=== PATIENT | female | born 1970 | race Caucasian/White ===

== ENCOUNTER 2016-08-19 17:39 | Emergency (ER) | payer OTHER ==
[~2016-08-19] VITALS: Ht 172.7 cm; Wt 73.3 kg
[~2016-08-19 17:39] MED LIST: AZIT250T3 PO; OMEP20TA PO; PLAQ200T PO; PROP40TA3 PO; VENL75CA44 PO
[2016-08-19 17:45] VITALS: BP 136/92; PULSE 76; RESP 16; TEMP 98.9; O2SAT 100
[2016-08-19 17:56] LABS: BLOOD, URINE TRACE (NEG); GLUCOSE,URINE NEG (NEG); KETONE, URINE 15 mg/dL (NEG); NITRITE,URINE NEG (NEG)
[2016-08-19 18:03] LABS: URINE COLOR YELLOW (YELLW/STRAW)
[2016-08-19 18:04] LABS: COMMENT (UR) CULT NOT INDICATED; CULTURE IF INDICATED CULT NOT INDICATED; RBC, URINE 0-3 /hpf (0-3); SQUAMOUS EPITHELIAL CELL URINE 0-5 /hpf (0-5); WBC, URINE 0-2 /hpf (0-5)
[2016-08-19] MEDS ORDERED: KETOROLAC TROMETHAMINE 30 MG/ML (IVP) VIAL IVP ONE (18:45)
[2016-08-19] MEDS ORDERED: SODIUM CHLORIDE 0.9% FLUSH 5 ML FLUSH IVF PRN (18:45)
[2016-08-19] MEDS ORDERED: ONDANSETRON HCL 4 MG/2 ML VIAL IVP ONE (18:45)
[2016-08-19 19:05] VITALS: BP 109/83; PULSE 58; RESP 20; O2SAT 100; O2SAT 98
[2016-08-19 19:16] LABS: AUTOMATED NEUTROPHIL # 3.7 TH/MM3 (1.8-7.7); BASOPHIL # 0.1 TH/MM3 (0-0.2); BASOPHIL % 1.5 % (0.0-2.0); EOSINOPHIL # 0.1 TH/MM3 (0-0.4); EOSINOPHIL % 2.1 % (0.0-4.0); HEMATOCRIT 35.8 % (35.0-46.0); HEMO FLAGS DIFF FINAL; LYMPH % 38.7 % (9.0-44.0); LYMPHOCYTE # 2.7 TH/MM3 (1.0-4.8); MEAN CELL VOLUME 82.8 FL (80.0-100.0); MEAN CORPUSCULAR HEMOGLOBIN 26.3 PG (27.0-34.0); MEAN CORPUSCULAR HGB CONC 31.8 % (32.0-36.0); MONO % 6.4 % (0.0-8.0); NEUT % 51.3 % (16.0-70.0); PLATELET COUNT 330 TH/MM3 (150-450); RED BLOOD COUNT 4.33 MIL/MM3 (4.00-5.30); RED CELL DISTRIBUTION WIDTH 16.9 % (11.6-17.2); WHITE BLOOD COUNT 7.1 TH/MM3 (4.0-11.0)
[2016-08-19 19:33] LABS: CHLORIDE 107 MEQ/L (98-107); POTASSIUM 3.9 MEQ/L (3.5-5.1); SODIUM (NA) 140 MEQ/L (136-145)
[2016-08-19 19:37] LABS: ANION GAP 9 MEQ/L (5-15); BICARBONATE 23.8 MEQ/L (21.0-32.0); BLOOD UREA NITROGEN 11 MG/DL (7-18)
[2016-08-19 19:40] LABS: ALT (GPT) 14 U/L (10-53); AST (GOT) 12 U/L (15-37); GLOMERULAR FILTRATION RATE 83 ML/MIN (>89)
[2016-08-19 19:41] LABS: TOTAL BILIRUBIN ADULT 0.5 MG/DL (0.2-1.0)
--- NOTE | 2016-08-19 19:41 | PD ---
HPI Chief Complaint: Abdominal Pain Time Seen by Provider: 17:57 Travel History International Travel<30 days: No Contact w/Intl Traveler<30days: No Traveled to known affect area: No History of Present Illness HPI Patient is a 45-year-old female presents to emergency department today with right flank pain radiating down to her groin for the past week. Intermittent in nature. Not associated with any dysuria. Patient does state that she's been having some intermittent nausea without vomiting. States she's never had pain like this before. No kidney stone history. No fevers. States she is monogamous with a single female partner and it is impossible that she is . Patient states the pain is sharp in nature. PFSH Past Medical History Hx Anticoagulant Therapy: No Asthma: No Autoimmune Disease: Yes (Lupus) Blood Disorders: No Anxiety: Yes Depression: Yes Heart Rhythm Problems: No Cardiovascular Problems: Yes High Cholesterol: Yes Chemotherapy: No Chest Pain: No Congestive Heart Failure: No COPD: Yes Cerebrovascular Accident: No Diabetes: No Diminished Hearing: No Diverticulitis: Yes Endocrine: No Gastrointestinal Disorders: Yes (GERD) GERD: Yes Glaucoma: No Genitourinary: Yes (Urethral sling) Headaches: Yes Hepatitis: No Hiatal Hernia: Yes Hypertension: Yes (aplasia therapy) Immune Disorder: Yes (Lupus) Medical other: Yes (GERD) Musculoskeletal: Yes (arthritis) Neurologic: No Psychiatric: Yes Reproductive: Yes Respiratory: Yes Immunizations Current: Yes Myocardial Infarction: No Radiation Therapy: No Sleep Apnea: No Thyroid Disease: No Ulcer: No PNEUMOCCOCAL Vaccine (Year): 1 ?: Not : 4 Para: 2 Miscarriage: 2 Dilation and Curettage (D&C): Yes Tubal Ligation: Yes Past Surgical History Abdominal Surgery: No AICD: No Appendectomy: Yes Body Medical Devices: MESH Cardiac Surgery: Yes (ABLATION 2002 FOR SVT) Ear Surgery: No Endocrine Surgery: No Eye Surgery: No Genitourinary Surgery: Yes (URINARY SLING/MESH) Gynecologic Surgery: No Hysterectomy: No Joint Replacement: No Neurologic Surgery: No Oral Surgery: No Pacemaker: No Thoracic Surgery: No Other Surgery: Yes Social History Alcohol Use: Yes (Occ.) Tobacco Use: Yes (1/2PPD) Substance Use: No Allergies-Medications (Allergen,Severity, Reaction): Coded Allergies: Sulfa (Verified Allergy, Intermediate, Hives, 08/19/16) Hibiclens (Verified Allergy, Mild, HIVES, 08/19/16) Iodine (Verified Allergy, Mild, HIVES, 08/19/16) Reported Meds & Prescriptions Reported Meds & Active Scripts Active Reported Venlafaxine ER 24 HR (Venlafaxine HCl) 75 Mg Cap 75 Mg PO DAILY Propranolol (Propranolol HCl) 40 Mg Tab 40 Mg PO TID Plaquenil (Hydroxychloroquine Sulfate) 200 Mg Tab 200 Mg PO BID Take with food Omeprazole 20 Mg Tab 20 Mg PO DAILY Review of Systems Except as stated in HPI: all other systems reviewed are Neg Physical Exam Narrative GENERAL: [Well-developed well-nourished no apparent distress SKIN: Warm and dry. HEAD: Atraumatic. Normocephalic. EYES: Pupils equal and round. No scleral icterus. No injection or drainage. ENT: No nasal bleeding or discharge. Mucous membranes pink and moist. NECK: Trachea midline. No JVD. CARDIOVASCULAR: Regular rate and rhythm. No murmur appreciated. RESPIRATORY: No accessory muscle use. Clear to auscultation. Breath sounds equal bilaterally. GASTROINTESTINAL: Abdomen soft, non-tender, nondistended. Hepatic and splenic margins not palpable. Minimal right-sided CVA tenderness. MUSCULOSKELETAL: No obvious deformities. No clubbing. No cyanosis. No edema. NEUROLOGICAL: Awake and alert. No obvious cranial nerve deficits. Motor grossly within normal limits. Normal speech. PSYCHIATRIC: Appropriate mood and affect; insight and judgment normal. Data Data Last Documented VS Vital Signs Date Time Temp Pulse Resp B/P Pulse Ox O2 Delivery O2 Flow Rate FiO2 08/19/16 20:09 53 20 128/80 98 08/19/16 17:45 98.9 Orders Urinalysis - C+S If Indicated (08/19/16 17:44) Complete Blood Count With Diff (08/19/16 18:39) Comprehensive Metabolic Panel (08/19/16 18:39) Lipase (08/19/16 18:39) Ct Abd/Pel W/O Iv Contrast (08/19/16 18:39) Iv Access Insert/Monitor (08/19/16 18:39) Ecg Monitoring (08/19/16 18:39) Oximetry (08/19/16 18:39) Ondansetron Inj (Zofran Inj) (08/19/16 18:45) Sodium Chloride 0.9% Flush (Ns Flush) (08/19/16 18:45) Electrocardiogram (08/19/16 18:39) Ketorolac Inj (Toradol Inj) (08/19/16 18:45) Ed Urine Pregnancytest Poc (08/19/16 18:39) Labs Laboratory Tests Test 08/19/16 08/19/16 17:48 18:55 Urine Color YELLOW Urine Turbidity CLEAR Urine pH 7.0 Urine Specific [place] 1.021 Urine Protein NEG mg/dL Urine Glucose (UA) NEG mg/dL Urine Ketones 15 mg/dL Urine Occult Blood TRACE Urine Nitrite NEG Urine Bilirubin NEG Urine Leukocyte Esterase NEG Urine RBC 0-3 /hpf Urine WBC 0-2 /hpf Urine Squamous Epithelial 0-5 /hpf Cells Microscopic Urinalysis Comment CULT NOT INDICATED White Blood Count 7.1 TH/MM3 Red Blood Count 4.33 MIL/MM3 Hemoglobin 11.4 GM/DL Hematocrit 35.8 % Mean Corpuscular Volume 82.8 FL Mean Corpuscular Hemoglobin 26.3 PG Mean Corpuscular Hemoglobin 31.8 % Concent Red Cell Distribution Width 16.9 % Platelet Count 330 TH/MM3 Mean Platelet Volume 8.4 FL Neutrophils (%) (Auto) 51.3 % Lymphocytes (%) (Auto) 38.7 % Monocytes (%) (Auto) 6.4 % Eosinophils (%) (Auto) 2.1 % Basophils (%) (Auto) 1.5 % Neutrophils # (Auto) 3.7 TH/MM3 Lymphocytes # (Auto) 2.7 TH/MM3 Monocytes # (Auto) 0.5 TH/MM3 Eosinophils # (Auto) 0.1 TH/MM3 Basophils # (Auto) 0.1 TH/MM3 CBC Comment DIFF FINAL Differential Comment Sodium Level 140 MEQ/L Potassium Level 3.9 MEQ/L Chloride Level 107 MEQ/L Carbon Dioxide Level 23.8 MEQ/L Anion Gap 9 MEQ/L Blood Urea Nitrogen 11 MG/DL Creatinine 0.76 MG/DL Estimat Glomerular Filtration 83 ML/MIN Rate Random Glucose 87 MG/DL Calcium Level 8.8 MG/DL Total Bilirubin 0.5 MG/DL Aspartate Amino Transf 12 U/L (AST/SGOT) Alanine Aminotransferase 14 U/L (ALT/SGPT) Alkaline Phosphatase 73 U/L Total Protein 6.8 GM/DL Albumin 3.3 GM/DL Lipase 90 U/L MDM Medical Decision Making Medical Screen Exam Complete: Yes Emergency Medical Condition: Yes Interpretation(s) EKG shows normal sinus rhythm with a normal axis normal R-wave progression. No concerning ST-T changes. Intervals within normal limits. This is normal EKG Differential Diagnosis Kidney stone, , acute kidney injury, urinary tract infection, cholecystitis and likely, pancreatitis and unlikely, gastritis, gastroenteritis. Narrative Course Patient was roomed in emergency department, she was given Toradol and started to feel better. She was also given Zofran and her nausea resolved. Symptoms could be consistent with kidney stones or not concrete. Discussed with her need for CAT scan to confirm diagnosis as well as to look for other pathology. Last 24 hours Impressions Abdomen/Pelvis CT 08/19/16 [id number] Signed Impressions: Service Date/Time: Friday, August 19, 2016 19:46 - CONCLUSION: No acute CT findings in the abdomen or pelvis. Stepan Carver MD Labs are reassuring electrolytes within normal limits, LFTs normal, lipase negative. CBC shows minimal anemia to 11.4 hemoglobin otherwise within normal limits. UA negative UPT negative. Discussed with the patient and no discrete cause of her abdominal pain could be ascertained. She was offered pelvic exam is perfectly workup and she declined at this time wanted to follow up with her crepe sole scourer instead. She appears well and in no apparent distress and stable for discharge. Discussed need follow-up the primary care physician. Diagnosis Primary Impression: Abdominal pain Qualified Code: R10.11 - Right upper quadrant abdominal pain Disposition: 01 DISCHARGE HOME Condition: Stable Eric Sharp MD Aug 19, 2016 19:41
[2016-08-19 19:42] LABS: ALKALINE PHOSPHATASE 73 U/L (45-117)
[2016-08-19 20:09] VITALS: BP 128/80; PULSE 53; RESP 20; O2SAT 98
--- NOTE | 2016-08-19 20:13 | RADHPO ---
EXAM DATE/TIME: 08/19/2016 19:46 [facility] COMPARISON: No previous studies available for comparison. INDICATIONS : Right lower quadrant pain. ORAL CONTRAST: No oral contrast ingested. RADIATION DOSE: 13.28 CTDIvol (mGy) MEDICAL HISTORY : Gastroesophageal reflux disease. Diverticulitis. Hernia, hiatal.Hypertension. SURGICAL HISTORY : Appendectomy. Tubal ligation.Urinary sling. ENCOUNTER: Initial ACUITY: 2 days PAIN SCALE: 7/10 LOCATION: Right lower quadrant TECHNIQUE: Volumetric scanning of the abdomen and pelvis was performed. Using automated exposure control and ad justment of the mA and/or kV according to patient size, radiation dose was kept as low as reasonably achievable to obtain optimal diagnostic quality images. FINDINGS: LOWER LUNGS: The visualized lower lungs are clear. LIVER: Homogeneous density without lesion. There is no dilation of the biliary tree. No calcified gallston es. SPLEEN: Normal size without lesion. PANCREAS: Within normal limits. KIDNEYS: Normal in size and shape. There is no mass, stone, or hydronephrosis. ADRENAL GLANDS: Within normal limits. VASCULAR: There is no aortic aneurysm. BOWEL/MESENTERY: The stomach, small bowel, and colon demonstrate no acute abnormality. There is no free intraperitone al air or fluid. ABDOMINAL WALL: Within normal limits. RETROPERITONEUM: There is no lymphadenopathy. BLADDER: No wall thickening or mass. REPRODUCTIVE: Within normal limits. INGUINAL: There is no lymphadenopathy or hernia. MUSCULOSKELETAL: Within normal limits for patient age. CONCLUSION: No acute CT findings in the abdomen or pelvis. Stepan Carver MD on August 19, 2016 at 20:09 Board Certified Radiologist. This report was verified electronically.
--- NOTE | 2016-08-20 11:38 | EKG ---
Date Performed: 08/19/2016 Time Performed: 19:04:46 PTAGE: 45 years EKG: Sinus bradycardia. Normal ECG except for rate PREVIOUS TRACING : 07/14/2016 20.13 DOCTOR: Beau Doherty Interpretating Date/Time 08/20/2016 11:37:18
[2016-12-11] MEDS ORDERED: VENL75CA44 PO (10:34)
[2017-01-13] MEDS ORDERED: PROP40TA3 PO (12:52)
== END 2016-08-19 20:54 | disposition home or self-care (01) ==
LOC: PHED 17:39
DX: R10.11 Right upper quadrant pain (principal); R11.0 Nausea; I10 Essential (primary) hypertension; F17.200 Nicotine dependence, unspecified, uncomplicated; R00.1 Bradycardia, unspecified; E78.00 Pure hypercholesterolemia, unspecified; Z86.2 Personal history of diseases of the blood and blood-forming organs and certain disorders involving the immune mechanism; Z86.79 Personal history of other diseases of the circulatory system; Z87.09 Personal history of other diseases of the respiratory system; Z87.19 Personal history of other diseases of the digestive system
CPT/HCPCS: 74176; 80053; 81001; 83690; 84703; 85025; 93005; 96374; 96375; 99284; J1885; J2405

== ENCOUNTER 2016-10-29 04:16 | Emergency (ER) | payer OTHER ==
[~2016-10-29] VITALS: Ht 172.7 cm; Wt 71.9 kg
[~2016-10-29 04:16] MED LIST changes: -AZIT250T3 PO
[2016-10-29 04:30] VITALS: BP 152/98; PULSE 76; RESP 18; TEMP 98.7; O2SAT 97
[2016-10-29] MEDS ORDERED: methylPREDNISolone SOD SUCC 125 MG/2 ML VIAL IV PUSH ONE (04:45)
[2016-10-29] MEDS ORDERED: PROCHLORPERAZINE INJ 10 MG/2 ML VIAL IVP ONE (04:45)
[2016-10-29] MEDS ORDERED: SODIUM CHLORIDE 0.9% FLUSH 5 ML FLUSH IVF PRN (04:45)
[2016-10-29] MEDS ORDERED: diphenhydrAMINE HCL 50 MG/ML VIAL IVP ONE (04:45)
--- NOTE | 2016-10-29 05:10 | PD ---
HPI . Headache Chief Complaint: Headache Time Seen by Provider: 04:33 Travel History International Travel<30 days: No Contact w/Intl Traveler<30days: No Traveled to known affect area: No History of Present Illness HPI Patient presents with a headache. Onset was yesterday. She describes it as a muscle contraction headache. It starts in the occiput and radiates over her entire scalp. Is associated with nausea but no vomiting. She states that the symptoms are similar to previous lupus flares. [id number]: Occiput DURATION: One day TIMING: Continuous CONTEXT: History of lupus ASSOCIATED SYMPTOMS: Nausea PFSH Past Medical History Hx Anticoagulant Therapy: No Asthma: No Autoimmune Disease: Yes (Lupus) Blood Disorders: No Anxiety: Yes Depression: Yes Heart Rhythm Problems: No Cardiovascular Problems: Yes High Cholesterol: Yes Chemotherapy: No Chest Pain: No Congestive Heart Failure: No COPD: Yes Cerebrovascular Accident: No Diabetes: No Diminished Hearing: No Diverticulitis: Yes Endocrine: No Gastrointestinal Disorders: Yes (GERD) GERD: Yes Glaucoma: No Genitourinary: Yes (Urethral sling) Headaches: Yes Hepatitis: No Hiatal Hernia: Yes Hypertension: Yes (aplasia therapy) Immune Disorder: Yes (Lupus) Implanted Vascular Access Dvce: No Medical other: Yes (GERD) Musculoskeletal: Yes (arthritis) Neurologic: No Psychiatric: Yes Reproductive: Yes Respiratory: Yes Immunizations Current: Yes Myocardial Infarction: No Radiation Therapy: No Sleep Apnea: No Thyroid Disease: No Ulcer: No Tetanus Vaccination: < 5 Years Influenza Vaccination: Yes PNEUMOCCOCAL Vaccine (Year): 1 ?: Not LMP: 10/21/16 : 4 Para: 2 Miscarriage: 2 Dilation and Curettage (D&C): Yes Tubal Ligation: Yes Past Surgical History Abdominal Surgery: No AICD: No Appendectomy: Yes Body Medical Devices: MESH Cardiac Surgery: Yes (ABLATION 2002 FOR SVT) Ear Surgery: No Endocrine Surgery: No Eye Surgery: No Genitourinary Surgery: Yes (URINARY SLING/MESH) Gynecologic Surgery: No Hysterectomy: No Joint Replacement: No Neurologic Surgery: No Oral Surgery: No Pacemaker: No Thoracic Surgery: No Other Surgery: Yes Social History Alcohol Use: Yes (Occ.) Tobacco Use: Yes (1/2PPD) Substance Use: No Allergies-Medications (Allergen,Severity, Reaction): Coded Allergies: Sulfa (Verified Allergy, Intermediate, Hives, 10/29/16) Hibiclens (Verified Allergy, Mild, HIVES, 10/29/16) Iodine (Verified Allergy, Mild, HIVES, 10/29/16) Reported Meds & Prescriptions Reported Meds & Active Scripts Active Reported Venlafaxine ER 24 HR (Venlafaxine HCl) 75 Mg Cap 75 Mg PO DAILY Propranolol (Propranolol HCl) 40 Mg Tab 40 Mg PO TID Plaquenil (Hydroxychloroquine Sulfate) 200 Mg Tab 200 Mg PO BID Take with food Omeprazole 20 Mg Tab 20 Mg PO DAILY Review of Systems Except as stated in HPI: all other systems reviewed are Neg General / Constitutional: No: Fever, Chills Eyes: No: Blurred Vision, Photophobia HENT: Positive: Headaches Gastrointestinal: Positive: Nausea, No: Vomiting Neurologic: No: Weakness, Paresthesia Physical Exam Narrative GENERAL: Thin woman in no acute distress. SKIN: Warm and dry. HEAD: Atraumatic. Normocephalic. Tender in the occiput. EYES: Pupils equal and round. ENT: No nasal bleeding or discharge. Mucous membranes pink and moist. NECK: Trachea midline. Supple. CARDIOVASCULAR: Regular rate and rhythm. RESPIRATORY: No accessory muscle use. GASTROINTESTINAL: Abdomen soft, non-tender, nondistended. MUSCULOSKELETAL: No obvious deformities. No edema. NEUROLOGICAL: Awake and alert. No obvious cranial nerve deficits. Motor grossly within normal limits. Normal speech. PSYCHIATRIC: Appropriate mood and affect; insight and judgment normal. Data Data Last Documented VS Vital Signs Date Time Temp Pulse Resp B/P Pulse Ox O2 Delivery O2 Flow Rate FiO2 10/29/16 04:34 76 18 97 Room Air 10/29/16 04:30 98.7 152/98 Orders Iv Access Insert/Monitor (10/29/16 04:36) Sodium Chloride 0.9% Flush (Ns Flush) (10/29/16 04:45) Prochlorperazine Inj (Compazine Inj) (10/29/16 04:45) Diphenhydramine Inj (Benadryl Inj) (10/29/16 04:45) Methylprednisolone So Succ Inj (Solumedr (10/29/16 04:45) MDM Medical Decision Making Medical Screen Exam Complete: Yes Emergency Medical Condition: Yes Medical Record Reviewed: Yes (previous headaches have been treated with steroids and muscle relaxants.) Differential Diagnosis Differential diagnosis of headache includes but is not limited to migraine, muscle contraction headache, brain tumor, brain bleed Narrative Course Patient presents complaining with a muscle contraction headache. It is similar to previous headaches that she has had associated with a lupus flare. On review of her records, she has previously been treated with steroids. The patient was treated here with Compazine, Benadryl and Solu-Medrol. She is feeling much better. She will be discharged to home. Diagnosis Primary Impression: Acute tension headache Qualified Code: G44.209 - Acute non intractable tension-type headache Additional Impression: Lupus (systemic lupus erythematosus) Qualified Code: M32.9 - Systemic lupus erythematosus, unspecified SLE type, unspecified organ involvement status Patient Instructions: Acute Headache (DC), General Instructions Med/Other Pt SpecificInfo: Prescription(s) given Scripts Ondansetron Odt (Zofran Odt)4 Mg Tab4 Mg SL Q6HR PRN (Nausea/Vomiting) #10 TAB Ref 0 Prov:Carmita Burk MD 10/29/16 Prednisone 20 Mg Tab40 Mg PO DAILY 5 Days Ref 0 Prov:Carmita Burk MD 10/29/16 Disposition: DISCHARGE HOME Condition: Stable Carmita Burk MD Oct 29, 2016 05:10
[2016-10-29] MEDS ORDERED: ZOFR4TAB3 SL (05:31)
[2016-10-29] MEDS ORDERED: PRED20 PO (05:31)
[2016-10-29 05:32] VITALS: BP 148/84; PULSE 74; RESP 18; O2SAT 97
[2016-12-11] MEDS ORDERED: VENL75CA44 PO (10:34)
[2017-01-13] MEDS ORDERED: PROP40TA3 PO (12:52)
== END 2016-10-29 05:45 | disposition home or self-care (01) ==
LOC: PHED 04:16
DX: G44.209 Tension-type headache, unspecified, not intractable (principal); M32.9 Systemic lupus erythematosus, unspecified; R11.0 Nausea; I10 Essential (primary) hypertension; F17.210 Nicotine dependence, cigarettes, uncomplicated
CPT/HCPCS: 96374; 96375; 99283; J0780; J1200; J2930

== ENCOUNTER 2017-01-07 21:15 | Emergency (ER) | payer SELFPAY ==
[~2017-01-07] VITALS: Ht 172.7 cm; Wt 69.6 kg
[~2017-01-07 21:15] MED LIST changes: +PRED20 PO; +ZOFR4TAB3 SL
[2017-01-07 21:29] VITALS: BP 124/91; PULSE 86; RESP 18; TEMP 98.5; O2SAT 98
[2017-01-07 21:37] LABS: BLOOD, URINE NEG (NEG); GLUCOSE,URINE NEG (NEG); KETONE, URINE TRACE mg/dL (NEG); NITRITE,URINE NEG (NEG)
[2017-01-07 21:43] LABS: RBC, URINE 0-2 /hpf (0-3); URINE COLOR YELLOW (YELLW/STRAW); WBC, URINE 0-2 /hpf (0-5)
[2017-01-07 21:44] LABS: BACTERIA, URINE MOD /hpf; COMMENT (UR) CULTURE INDICATED; CULTURE IF INDICATED CULTURE INDICATED
[2017-01-07] MEDS ORDERED: PLAQ200T PO (21:46)
[2017-01-07] MEDS ORDERED: PROM12.54 PO (22:14)
[2017-01-07] MEDS ORDERED: CIPR250T52 PO (22:18)
--- NOTE | 2017-01-07 22:20 | PD ---
HPI Chief Complaint: Complaint Time Seen by Provider: 21:57 Travel History International Travel<30 days: No Contact w/Intl Traveler<30days: No Traveled to known affect area: No History of Present Illness HPI The patient is a 46-year-old female that complains of dysuria and urgency with frequency for 2 days. She states she has had urinary infections before and it feels like another urinary infection. The patient also states she has lupus but cannot afford the plaquenal. She denies any fever or flank pain. She denies any vomiting but does have nausea. PFSH Past Medical History Hx Anticoagulant Therapy: No Asthma: No Autoimmune Disease: Yes (Lupus) Blood Disorders: No Anxiety: Yes Depression: Yes Heart Rhythm Problems: No Cardiovascular Problems: Yes High Cholesterol: Yes Chemotherapy: No Chest Pain: No Congestive Heart Failure: No COPD: Yes Cerebrovascular Accident: No Diabetes: No Diminished Hearing: No Diverticulitis: Yes Endocrine: No Gastrointestinal Disorders: Yes (GERD) GERD: Yes Glaucoma: No Genitourinary: Yes (Urethral sling) Headaches: Yes Hepatitis: No Hiatal Hernia: Yes Hypertension: Yes (aplasia therapy) Immune Disorder: Yes (Lupus) Implanted Vascular Access Dvce: No Medical other: Yes (GERD) Musculoskeletal: Yes (arthritis) Neurologic: No Psychiatric: Yes Reproductive: Yes Respiratory: Yes (COPD) Immunizations Current: Yes Myocardial Infarction: No Radiation Therapy: No Sleep Apnea: No Thyroid Disease: No Ulcer: No Tetanus Vaccination: < 5 Years Influenza Vaccination: No PNEUMOCCOCAL Vaccine (Year): 1 ?: Not LMP: 5-12-17 : 4 Para: 2 Miscarriage: 2 Dilation and Curettage (D&C): Yes Tubal Ligation: Yes Past Surgical History Abdominal Surgery: No AICD: No Appendectomy: Yes Body Medical Devices: MESH Cardiac Surgery: Yes (ABLATION 2002 FOR SVT) Ear Surgery: No Endocrine Surgery: No Eye Surgery: No Genitourinary Surgery: Yes (URINARY SLING/MESH 2008) Gynecologic Surgery: No Hysterectomy: No Joint Replacement: No Neurologic Surgery: No Oral Surgery: No Pacemaker: No Thoracic Surgery: No Other Surgery: Yes Social History Alcohol Use: Yes (Occ.) Tobacco Use: Yes (1/2PPD) Substance Use: No Allergies-Medications (Allergen,Severity, Reaction): Coded Allergies: Sulfa (Verified Allergy, Intermediate, Hives, 01/07/17) Hibiclens (Verified Allergy, Mild, HIVES, 01/07/17) Iodine (Verified Allergy, Mild, HIVES, 01/07/17) not contrast only topical Reported Meds & Prescriptions Reported Meds & Active Scripts Active Venlafaxine ER 24 HR (Venlafaxine HCl) 75 Mg Cap 75 Mg PO DAILY Reported Plaquenil (Hydroxychloroquine Sulfate) 200 Mg Tab 200 Mg PO BID Take with food Propranolol (Propranolol HCl) 40 Mg Tab 40 Mg PO TID Review of Systems Except as stated in HPI: all other systems reviewed are Neg Physical Exam Narrative GENERAL: Well-nourished, well-developed patient in slight apparent distress with her suprapubic discomfort. Her vital signs show blood pressure 124/91 but are otherwise normal. SKIN: Focused skin assessment warm/dry. HEAD: Normocephalic. EYES: No scleral icterus. No injection or drainage. NECK: Supple, trachea midline. No JVD or lymphadenopathy. CARDIOVASCULAR: Regular rate and rhythm without murmurs, gallops, or rubs. RESPIRATORY: Breath sounds equal bilaterally. No accessory muscle use. GASTROINTESTINAL: Abdomen soft, with tenderness over the left flank and suprapubic area to direct palpation, nondistended. No guarding or rebound is present. MUSCULOSKELETAL: No cyanosis, or edema. BACK: Nontender without obvious deformity. No CVA tenderness. Data Data Last Documented VS Vital Signs Date Time Temp Pulse Resp B/P Pulse Ox O2 Delivery O2 Flow Rate FiO2 01/07/17 21:29 98.5 86 18 124/91 98 Orders Urinalysis - C+S If Indicated (01/07/17 21:28) Urine Culture (01/07/17 21:30) Labs Laboratory Tests Test 01/07/17 21:30 Urine Color YELLOW Urine Turbidity CLEAR Urine pH 6.0 Urine Specific [place] 1.026 Urine Protein TRACE mg/dL Urine Glucose (UA) NEG mg/dL Urine Ketones TRACE mg/dL Urine Occult Blood NEG Urine Nitrite NEG Urine Bilirubin NEG Urine Leukocyte Esterase NEG Urine RBC 0-2 /hpf Urine WBC 0-2 /hpf Urine Squamous Epithelial 6-8 /hpf Cells Urine Bacteria MOD /hpf Microscopic Urinalysis Comment CULTURE INDICATED MDM Medical Decision Making Medical Screen Exam Complete: Yes Emergency Medical Condition: Yes Medical Record Reviewed: Yes Differential Diagnosis Pyelonephritis, cystitis, colitis, gastritis Narrative Course The patient appears to have cystitis with pyelonephritis. She will need to increase her liquid intake and is given Cipro. Cipro is used because she cannot afford any medications at this time. She is to follow-up with a primary care physician next week. Diagnosis Primary Impression: Pyelonephritis Additional Impression: Cystitis Additional Instructions: The antibiotic is free at [facility] pharmacy. It is one tablet twice daily for 10 days. Increase your liquid intake and follow-up with a primary care physician next week. For nausea I wrote Phenergan. It is an inexpensive medication for nausea. It is one tablet every 6 hours. Med/Other Pt SpecificInfo: Prescription(s) given Scripts Ciprofloxacin (Cipro)250 Mg Int078 Mg PO BID 10 Days Ref 0 Prov:Tate Chatman MD 01/07/17 Promethazine 12.5 Mg Tab25 Mg PO Q6H PRN (NAUSEA OR VOMITING) #30 TAB Ref 0 Prov:Tate Chatman MD 01/07/17 Disposition: 01 DISCHARGE HOME Condition: Stable Tate Chatman MD January 07, 2017 22:20
[2017-01-07] MEDS ORDERED: CIPROFLOXACIN 500 MG TAB PO ONE (22:30)
[2017-01-07] MEDS ORDERED: ONDANSETRON ODT 4 MG TAB PO ONE (22:30)
[2017-01-07 22:46] VITALS: BP 114/83
[2017-01-13] MEDS ORDERED: PROP40TA3 PO (12:52)
== END 2017-01-07 22:49 | disposition home or self-care (01) ==
LOC: PHED 21:15
DX: N12 Tubulo-interstitial nephritis, not specified as acute or chronic (principal); N30.90 Cystitis, unspecified without hematuria; M32.9 Systemic lupus erythematosus, unspecified; F41.9 Anxiety disorder, unspecified; E78.00 Pure hypercholesterolemia, unspecified; J44.9 Chronic obstructive pulmonary disease, unspecified; K21.9 Gastro-esophageal reflux disease without esophagitis; I10 Essential (primary) hypertension; F17.200 Nicotine dependence, unspecified, uncomplicated
CPT/HCPCS: 81001; 87086; 99284

== ENCOUNTER 2017-01-21 22:34 | Emergency (ER) | payer SELFPAY ==
[~2017-01-21] VITALS: Ht 172.7 cm; Wt 68.0 kg
[~2017-01-21 22:34] MED LIST changes: +CIPR250T52 PO; -OMEP20TA PO; -PRED20 PO; +PROM12.54 PO; -ZOFR4TAB3 SL
[2017-01-21 22:39] VITALS: BP 148/96; PULSE 70; RESP 14; TEMP 98.3; O2SAT 100
[2017-01-21 23:13] LABS: BLOOD, URINE NEG (NEG); GLUCOSE,URINE NEG (NEG); KETONE, URINE NEG (NEG); NITRITE,URINE NEG (NEG); PH, URINE 5.5 (5.0-8.5)
[2017-01-21 23:20] LABS: BACTERIA, URINE OCC /hpf; COMMENT (UR) CULT NOT INDICATED; CULTURE IF INDICATED CULT NOT INDICATED; RBC, URINE 0-2 /hpf (0-3); URINE COLOR YELLOW (YELLW/STRAW); WBC, URINE 0-2 /hpf (0-5)
--- NOTE | 2017-01-21 23:32 | RADHPO ---
EXAM DATE/TIME: 01/21/2017 23:02 [facility] COMPARISON: CT ABDOMEN & PELVIS W/O CONTRAST, August 19, 2016, 19:46. INDICATIONS : Bilateral flank and lower abdominal pain. ORAL CONTRAST: No oral contrast ingested. RADIATION DOSE: 14.06 CTDIvol (mGy) MEDICAL HISTORY : Lupus. Hypertension. Gastroesophageal reflux disease.Hiatal hernia. Recent kidney infection. SURGICAL HISTORY : Appendectomy. Bladder mesh. ENCOUNTER: Initial ACUITY: 1 day PAIN SCALE: 9/10 LOCATION: Bilateral flank TECHNIQUE: Volumetric scanning of the abdomen and pelvis was performed. Using automated exposure control and ad justment of the mA and/or kV according to patient size, radiation dose was kept as low as reasonably achievable to obtain optimal diagnostic quality images. FINDINGS: LOWER LUNGS: The visualized lower lungs are clear. LIVER: Homogeneous density without lesion. There is no dilation of the biliary tree. No calcified gallston es. SPLEEN: Normal size without lesion. PANCREAS: Within normal limits. KIDNEYS: Normal in size and shape. There is no mass, stone, or hydronephrosis. ADRENAL GLANDS: Within normal limits. VASCULAR: There is no aortic aneurysm. BOWEL/MESENTERY: The stomach, small bowel, and colon demonstrate no acute abnormality. There is no free intraperitone al air or fluid. ABDOMINAL WALL: Within normal limits. RETROPERITONEUM: There is no lymphadenopathy. BLADDER: No wall thickening or mass. REPRODUCTIVE: Within normal limits. INGUINAL: There is no lymphadenopathy or hernia. MUSCULOSKELETAL: Within normal limits for patient age. CONCLUSION: Normal examination. Normal ovarian cysts bilaterally. No evidence of renal obstruction or stone. Beau Alains MD on January 21, 2017 at 23:29 Board Certified Radiologist. This report was verified electronically.
--- NOTE | 2017-01-21 23:34 | PD ---
HPI Chief Complaint: Flank/Kidney Pain Time Seen by Provider: 22:59 Travel History International Travel<30 days: No Contact w/Intl Traveler<30days: No Traveled to known affect area: No History of Present Illness HPI 46-year-old female presents to the emergency department for complaint of urinary frequency urgency dysuria and left-sided flank pain radiating to the left lower quadrant since yesterday. Patient was recently seen in the emergency department and diagnosed with urinary tract infection given a prescription for Cipro. Patient states she completed a course of antibiotic and was briefly improved from symptoms standpoint but now symptoms have returned. Patient is use [id number] and left over nonsteroidal anti- inflammatory Naprosyn and Advil along with acetaminophen. Patient has not noticed any hematuria. Patient denies , s/p BTL. Patient rates pain 8 /10 intensity. PFSH Past Medical History Narrative Medical COPD arthritis lupus UTI pelvic pain ovarian cyst SVT cardiac ablation appendectomy adhesiolysis; tobacco use alcohol use; nursing notes reviewed Hx Anticoagulant Therapy: No Arthritis: Yes Asthma: No Autoimmune Disease: Yes (Lupus) Blood Disorders: No Anxiety: Yes Depression: Yes Heart Rhythm Problems: No Cardiovascular Problems: Yes High Cholesterol: Yes Chemotherapy: No Chest Pain: No Congestive Heart Failure: No COPD: Yes Cerebrovascular Accident: No Diabetes: No Diminished Hearing: No Diverticulitis: Yes Endocrine: No Gastrointestinal Disorders: Yes (GERD) GERD: Yes Glaucoma: No Genitourinary: Yes (Urethral sling) Headaches: Yes Hepatitis: No Hiatal Hernia: Yes Hypertension: Yes Immune Disorder: Yes (Lupus) Implanted Vascular Access Dvce: No Medical other: Yes (GERD) Musculoskeletal: Yes (arthritis) Neurologic: No Psychiatric: Yes Reproductive: Yes (CERVICAL DYSPLASIA: AGE 22) Respiratory: Yes (COPD) Immunizations Current: Yes Myocardial Infarction: No Radiation Therapy: No Sleep Apnea: No Thyroid Disease: No Ulcer: No PNEUMOCCOCAL Vaccine (Year): 1 ?: Not LMP: 01/09/17 : 4 Para: 2 Miscarriage: 2 Dilation and Curettage (D&C): Yes Tubal Ligation: Yes Past Surgical History Abdominal Surgery: No AICD: No Appendectomy: Yes Body Medical Devices: MESH Cardiac Surgery: Yes (ABLATION 2002 FOR SVT) Ear Surgery: No Endocrine Surgery: No Eye Surgery: No Genitourinary Surgery: Yes (URINARY SLING/MESH 2008) Gynecologic Surgery: No Hysterectomy: No Joint Replacement: No Neurologic Surgery: No Oral Surgery: No Pacemaker: No Thoracic Surgery: No Other Surgery: Yes Social History Alcohol Use: Yes (Occ.) Tobacco Use: Yes (1/2PPD) Substance Use: No Allergies-Medications (Allergen,Severity, Reaction): Coded Allergies: Sulfa (Verified Allergy, Intermediate, Hives, 01/21/17) Hibiclens (Verified Allergy, Mild, HIVES, 01/21/17) Iodine (Verified Allergy, Mild, HIVES, 01/21/17) not contrast only topical Reported Meds & Prescriptions Reported Meds & Active Scripts Active Lortab (Hydrocodone-Acetaminophen) 5-325 Mg Tab 1 Tab PO Q6H PRN Anaprox DS (Naproxen Sodium) 550 Mg Tab 550 Mg PO BID Propranolol (Propranolol HCl) 40 Mg Tab 40 Mg PO TID Promethazine (Promethazine HCl) 12.5 Mg Tab 25 Mg PO Q6H PRN Venlafaxine ER 24 HR (Venlafaxine HCl) 75 Mg Cap 75 Mg PO DAILY Reported Plaquenil (Hydroxychloroquine Sulfate) 200 Mg Tab 200 Mg PO BID Take with food Review of Systems Except as stated in HPI: all other systems reviewed are Neg General / Constitutional: No: Fever, Chills HENT: No: Congestion Cardiovascular: No: Chest Pain or Discomfort Respiratory: No: Shortness of Breath Gastrointestinal: Positive: Nausea, Abdominal Pain, No: Vomiting, Diarrhea Genitourinary: Positive: Dysuria, Flank Pain, No: Discharge, Vaginal Bleeding Musculoskeletal: No: Myalgias, Arthralgias Skin: No Rash Neurologic: No: Weakness Psychiatric: No: Anxiety Hematologic/Lymphatic: No: Lymph Node Enlargement Physical Exam Narrative GENERAL: Well-developed well-nourished female in no acute distress no respiratory distress SKIN: Warm and dry. HEAD: Normocephalic. EYES: No scleral icterus. No injection or drainage. NECK: Supple, trachea midline. No JVD or lymphadenopathy. CARDIOVASCULAR: Regular rate and rhythm without murmurs, gallops, or rubs. RESPIRATORY: Breath sounds equal bilaterally. No accessory muscle use. GASTROINTESTINAL: Abdomen soft, mild suprapubic and left lower quadrant tenderness without guarding or rebound palpable mass, nondistended. Pelvic exam normal external exam no redness no induration no lesions; speculum exam scant white mucus no purulent discharge cervical os closed no blood no tissue no clots; bimanual exam mild tenderness to palpation non-boggy and not enlarged of cervical motion tenderness and no adnexal mass or tenderness MUSCULOSKELETAL: No cyanosis, or edema. BACK: Nontender without obvious deformity. No CVA tenderness. Data Data Last Documented VS Vital Signs Date Time Temp Pulse Resp B/P Pulse Ox O2 Delivery O2 Flow Rate FiO2 01/22/17 00:30 55 157/90 100 Room Air 01/21/17 22:39 98.3 14 Orders Urinalysis - C+S If Indicated (01/21/17 22:59) Ct Abd/Pel W/O Iv Contrast (01/21/17 ) Ketorolac Inj (Toradol Inj) (01/21/17 23:45) Complete Blood Count With Diff (01/21/17 23:35) Basic Metabolic Panel (Bmp) (01/21/17 23:35) ^ Saline Lock (01/21/17 23:35) Wet Prep Profile (01/21/17 23:35) Ed Urine Pregnancytest Poc (01/21/17 23:45) Labs Laboratory Tests Test 01/21/17 01/21/17 01/22/17 22:50 23:45 00:00 Urine Color YELLOW Urine Turbidity CLEAR Urine pH 5.5 Urine Specific [place] 1.029 Urine Protein NEG mg/dL Urine Glucose (UA) NEG mg/dL Urine Ketones NEG mg/dL Urine Occult Blood NEG Urine Nitrite NEG Urine Bilirubin NEG Urine Leukocyte Esterase NEG Urine RBC 0-2 /hpf Urine WBC 0-2 /hpf Urine Squamous Epithelial 6-8 /hpf Cells Urine Bacteria OCC /hpf Microscopic Urinalysis Comment CULT NOT INDICATED White Blood Count 8.6 TH/MM3 Red Blood Count 4.26 MIL/MM3 Hemoglobin 11.8 GM/DL Hematocrit 35.8 % Mean Corpuscular Volume 83.9 FL Mean Corpuscular Hemoglobin 27.6 PG Mean Corpuscular Hemoglobin 32.9 % Concent Red Cell Distribution Width 17.0 % Platelet Count 267 TH/MM3 Mean Platelet Volume 8.4 FL Neutrophils (%) (Auto) 60.8 % Lymphocytes (%) (Auto) 31.4 % Monocytes (%) (Auto) 4.6 % Eosinophils (%) (Auto) 0.6 % Basophils (%) (Auto) 2.6 % Neutrophils # (Auto) 5.2 TH/MM3 Lymphocytes # (Auto) 2.7 TH/MM3 Monocytes # (Auto) 0.4 TH/MM3 Eosinophils # (Auto) 0.1 TH/MM3 Basophils # (Auto) 0.2 TH/MM3 CBC Comment DIFF FINAL Differential Comment Sodium Level 139 MEQ/L Potassium Level 4.1 MEQ/L Chloride Level 105 MEQ/L Carbon Dioxide Level 25.9 MEQ/L Anion Gap 8 MEQ/L Blood Urea Nitrogen 15 MG/DL Creatinine 0.76 MG/DL Estimat Glomerular Filtration 82 ML/MIN Rate Random Glucose 91 MG/DL Calcium Level 8.7 MG/DL Clue Cells (Wet Prep) NONE SEEN Vaginal Trichomonas (Wet Prep) NONE SEEN Vaginal Yeast (Wet Prep) NONE SEEN MDM Medical Decision Making Medical Screen Exam Complete: Yes Emergency Medical Condition: Yes Medical Record Reviewed: Yes Interpretation(s) UA: wnl CT a/b: nad per reading radiologist Vital Signs Date Time Temp Pulse Resp B/P Pulse Ox O2 Delivery O2 Flow Rate FiO2 01/21/17 22:39 98.3 70 14 148/96 100 CBC & BMP Diagram 01/21/17 23:45 Differential Diagnosis Cystitis, UTI, pyelonephritis, renal colic, diverticulitis, diverticulosis, ovarian cyst, STI, PID, adhesions, musculoskeletal pain Narrative Course Urinalysis performed POC hCG and CT abdomen and pelvis kidney stone protocol ordered No evidence of bladder wall thickness diverticulosis or diverticulitis or colitis; patient is noted to have bilateral ovarian cysts Patient stable for outpatient management and 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 Patient clinically improved at time of discharge Diagnosis Primary Impression: Pelvic pain Additional Impression: Ovarian cyst Referrals: [employer] call for appointment Patient Instructions: General Instructions Additional Instructions: Increase fluid hydration Follow-up with your warehouse worker and primary care provider Return to the emergency department for any concerns or change condition Take medication as prescribed as needed for pain Med/Other Pt SpecificInfo: Prescription(s) given Scripts Hydrocodone-Acetaminophen (Lortab)5-325 Mg Tab1 Tab PO Q6H PRN (PAIN) #7 TAB Ref 0 Prov:Renata Eid MD 01/22/17 Naproxen Sodium DS (Anaprox DS)550 Mg [id number] Mg PO BID #12 TAB Ref 0 Prov:Renata Eid MD 01/22/17 Disposition: 01 DISCHARGE HOME Condition: Stable Renata Eid MD Jan 21, 2017 23:34
[2017-01-21] MEDS ORDERED: KETOROLAC TROMETHAMINE 30 MG/ML (IVP) VIAL IV PUSH ONE (23:45)
[2017-01-21 23:56] LABS: AUTOMATED NEUTROPHIL # 5.2 TH/MM3 (1.8-7.7); BASOPHIL # 0.2 TH/MM3 (0-0.2); BASOPHIL % 2.6 % (0.0-2.0); EOSINOPHIL # 0.1 TH/MM3 (0-0.4); EOSINOPHIL % 0.6 % (0.0-4.0); HEMATOCRIT 35.8 % (35.0-46.0); LYMPH % 31.4 % (9.0-44.0); LYMPHOCYTE # 2.7 TH/MM3 (1.0-4.8); MEAN CELL VOLUME 83.9 FL (80.0-100.0); MEAN CORPUSCULAR HEMOGLOBIN 27.6 PG (27.0-34.0); MEAN CORPUSCULAR HGB CONC 32.9 % (32.0-36.0); MONO % 4.6 % (0.0-8.0); NEUT % 60.8 % (16.0-70.0); PLATELET COUNT 267 TH/MM3 (150-450); RED BLOOD COUNT 4.26 MIL/MM3 (4.00-5.30); WHITE BLOOD COUNT 8.6 TH/MM3 (4.0-11.0)
[2017-01-21 23:58] LABS: HEMO FLAGS DIFF FINAL
[2017-01-22 00:03] LABS: POTASSIUM 4.1 MEQ/L (3.5-5.1)
[2017-01-22 00:06] LABS: BICARBONATE 25.9 MEQ/L (21.0-32.0)
[2017-01-22 00:30] VITALS: BP 157/90; PULSE 55; O2SAT 100
[2017-01-22] MEDS ORDERED: HYDR-3533 PO (00:40)
[2017-01-22] MEDS ORDERED: NAPR550 PO (00:40)
== END 2017-01-22 01:10 | disposition home or self-care (01) ==
LOC: PHED 22:34
DX: R10.2 Pelvic and perineal pain (principal); N83.202 Unspecified ovarian cyst, left side; N83.201 Unspecified ovarian cyst, right side
CPT/HCPCS: 74176; 80048; 81001; 84703; 85025; 87210; 96374; 99285; J1885

== ENCOUNTER 2017-05-13 19:57 | Emergency (ER) | payer SELFPAY ==
[~2017-05-13] VITALS: Ht 170.2 cm; Wt 73.1 kg
[~2017-05-13 19:57] MED LIST changes: -CIPR250T52 PO; +NAPR550 PO
[2017-05-13 20:06] VITALS: BP 122/85; PULSE 84; RESP 20; TEMP 98.6; O2SAT 100
[2017-05-13 20:35] VITALS: BP 142/78; PULSE 81; RESP 17; O2SAT 99
--- NOTE | 2017-05-13 20:37 | PD ---
HPI Chief Complaint: Flank/Kidney Pain Time Seen by Provider: 20:30 Travel History International Travel<30 days: No Contact w/Intl Traveler<30days: No Traveled to known affect area: No History of Present Illness HPI This 46-year-old female says she is having bilateral flank pain and some suprapubic discomfort. The symptoms have been going on since yesterday. Is not aware of any fever or chills. She's been having some loose stools for a few days. She has a history of appendectomy in the past. She says there is no chance of . She is having crampy lower abdominal pain. He has had some intermittent dysuria and frequency PFSH Past Medical History Hx Anticoagulant Therapy: No Arthritis: Yes Asthma: No Autoimmune Disease: Yes (Lupus) Blood Disorders: No Anxiety: Yes Depression: Yes Heart Rhythm Problems: No Cardiovascular Problems: Yes High Cholesterol: Yes Chemotherapy: No Chest Pain: No Congestive Heart Failure: No COPD: Yes Cerebrovascular Accident: No Diabetes: No Diminished Hearing: No Diverticulitis: Yes Endocrine: No Gastrointestinal Disorders: Yes (GERD) GERD: Yes Glaucoma: No Genitourinary: Yes (Urethral sling) Headaches: Yes Hepatitis: No Hiatal Hernia: Yes Hypertension: Yes Immune Disorder: Yes (Lupus) Implanted Vascular Access Dvce: No Musculoskeletal: Yes (arthritis) Neurologic: No Psychiatric: Yes Reproductive: Yes (CERVICAL DYSPLASIA: AGE 22) Respiratory: Yes (COPD) Immunizations Current: Yes Myocardial Infarction: No Radiation Therapy: No Sleep Apnea: No Thyroid Disease: No Ulcer: No PNEUMOCCOCAL Vaccine (Year): 1 : 4 Para: 2 Miscarriage: 2 Dilation and Curettage (D&C): Yes Tubal Ligation: Yes Past Surgical History Abdominal Surgery: No AICD: No Appendectomy: Yes Body Medical Devices: MESH Cardiac Surgery: Yes (ABLATION 2002 FOR SVT) Ear Surgery: No Endocrine Surgery: No Eye Surgery: No Genitourinary Surgery: Yes (URINARY SLING/MESH 2008) Gynecologic Surgery: No Hysterectomy: No Joint Replacement: No Neurologic Surgery: No Oral Surgery: No Pacemaker: No Thoracic Surgery: No Other Surgery: Yes Social History Alcohol Use: Yes (Occ.) Tobacco Use: Yes (1/2PPD) Substance Use: No Allergies-Medications (Allergen,Severity, Reaction): Coded Allergies: Sulfa (Sulfonamide Antibiotics) (Verified Allergy, Intermediate, Hives, ) chlorhexidine (Verified Allergy, Mild, HIVES, 05/13/17) iodine (Verified Allergy, Mild, HIVES, 05/13/17) not contrast only topical potassium iodide (Verified Allergy, Mild, HIVES, 05/13/17) not contrast only topical povidone-iodine (Verified Allergy, Mild, HIVES, 05/13/17) not contrast only topical sodium iodide (Verified Allergy, Mild, HIVES, 05/13/17) not contrast only topical sodium iodide (Verified Allergy, Mild, HIVES, 05/13/17) not contrast only topical Reported Meds & Prescriptions Reported Meds & Active Scripts Active Venlafaxine ER 24 HR (Venlafaxine HCl) 75 Mg Cap 75 Mg PO DAILY Propranolol (Propranolol HCl) 40 Mg Tab 40 Mg PO TID Review of Systems General / Constitutional: No: Fever, Chills Eyes: No: Diploplia, Blurred Vision HENT: No: Headaches, Vertigo Cardiovascular: No: Chest Pain or Discomfort, Palpitations Respiratory: No: Cough, Shortness of Breath Gastrointestinal: No: Nausea, Vomiting Genitourinary: Positive: Frequency, Dysuria, Flank Pain, No: Urgency Musculoskeletal: No: Myalgias, Arthralgias Physical Exam Narrative GENERAL: Well-developed female SKIN: Focused skin assessment warm/dry. HEAD: Atraumatic. Normocephalic. EYES: Pupils equal and round. No scleral icterus. No injection or drainage. ENT: No nasal bleeding or discharge. Mucous membranes pink and moist. NECK: Trachea midline. No JVD. CARDIOVASCULAR: Regular rate and rhythm. No murmur appreciated. RESPIRATORY: No accessory muscle use. Clear to auscultation. Breath sounds equal bilaterally. GASTROINTESTINAL: Abdomen soft, there is some mild diffuse tenderness without guarding or rigidity, nondistended. Hepatic and splenic margins not palpable. There is some bilateral CVA tenderness MUSCULOSKELETAL: No obvious deformities. No clubbing. No cyanosis. No edema. NEUROLOGICAL: Awake and alert. No obvious cranial nerve deficits. Motor grossly within normal limits. Normal speech. PSYCHIATRIC: Appropriate mood and affect; insight and judgment normal. Data Data Last Documented VS Vital Signs Date Time Temp Pulse Resp B/P (MAP) Pulse Ox O2 Delivery O2 Flow Rate FiO2 05/13/17 21:51 72 154/87 (109) 05/13/17 21:50 17 05/13/17 21:33 98 Room Air 05/13/17 20:06 98.6 Orders Orders Urinalysis - C+S If Indicated (05/13/17 20:31) Urine Culture (05/13/17 20:44) Complete Blood Count With Diff (05/13/17 21:08) Comprehensive Metabolic Panel (05/13/17 21:08) Sodium Chlor 0.9% 1000 Ml Inj (Ns 1000 M (05/13/17 21:15) Hydromorphone Pf Inj (Dilaudid Pf Inj) (05/13/17 21:15) Ondansetron Inj (Zofran Inj) (05/13/17 21:15) Ct Abd/Pel W/O Iv Contrast (05/13/17 21:18) Labs Laboratory Tests Test 05/13/17 20:44 05/13/17 21:33 Urine Color YELLOW Urine Turbidity SLIGHT Urine pH 6.0 Urine Specific [place] 1.034 Urine Protein NEG mg/dL Urine Glucose (UA) NEG mg/dL Urine Ketones NEG mg/dL Urine Occult Blood NEG Urine Nitrite NEG Urine Bilirubin NEG Urine Leukocyte Esterase NEG Urine RBC 0-3 /hpf Urine WBC 0-2 /hpf Urine Squamous Epithelial Cells 6-8 /hpf Urine Calcium Oxalate Crystals MANY /hpf Urine Bacteria MOD /hpf Microscopic Urinalysis Comment CULTURE INDICATED White Blood Count 7.6 TH/MM3 Red Blood Count 4.11 MIL/MM3 Hemoglobin 11.5 GM/DL Hematocrit 34.5 % Mean Corpuscular Volume 83.7 FL Mean Corpuscular Hemoglobin 28.0 PG Mean Corpuscular Hemoglobin Concent 33.4 % Red Cell Distribution Width 15.1 % Platelet Count 270 TH/MM3 Mean Platelet Volume 8.3 FL Neutrophils (%) (Auto) 54.4 % Lymphocytes (%) (Auto) 36.0 % Monocytes (%) (Auto) 7.4 % Eosinophils (%) (Auto) 1.3 % Basophils (%) (Auto) 0.9 % Neutrophils # (Auto) 4.1 TH/MM3 Lymphocytes # (Auto) 2.7 TH/MM3 Monocytes # (Auto) 0.6 TH/MM3 Eosinophils # (Auto) 0.1 TH/MM3 Basophils # (Auto) 0.1 TH/MM3 CBC Comment DIFF FINAL Differential Comment Blood Urea Nitrogen 12 MG/DL Creatinine 0.77 MG/DL Random Glucose 88 MG/DL Total Protein 7.1 GM/DL Albumin 3.3 GM/DL Calcium Level 8.7 MG/DL Alkaline Phosphatase 66 U/L Aspartate Amino Transf (AST/SGOT) 11 U/L Alanine Aminotransferase (ALT/SGPT) 14 U/L Total Bilirubin 0.3 MG/DL Sodium Level 138 MEQ/L Potassium Level 4.2 MEQ/L Chloride Level 108 MEQ/L Carbon Dioxide Level 24.3 MEQ/L Anion Gap 6 MEQ/L Estimat Glomerular Filtration Rate 81 ML/MIN [facility] Medical Decision Making Medical Screen Exam Complete: Yes Emergency Medical Condition: Yes Medical Record Reviewed: Yes Differential Diagnosis Differential includes UTI, gastroenteritis, nonspecific abdominal pain Narrative Course Urinalysis is negative for infection. White count is normal. Liver function tests are normal. Patient was complaining of significant pain so a CT scan was done which is negative. Diagnosis Primary Impression: Nonspecific abdominal pain Additional Impression: Enteritis Disposition: DISCHARGE HOME Condition: Stable Vikash South MD May 13, 2017 20:37
[2017-05-13 20:52] LABS: BLOOD, URINE NEG (NEG); GLUCOSE,URINE NEG (NEG); KETONE, URINE NEG (NEG); NITRITE,URINE NEG (NEG)
[2017-05-13 20:58] LABS: URINE COLOR YELLOW (YELLW/STRAW)
[2017-05-13 20:59] LABS: BACTERIA, URINE MOD /hpf; CALCIUM OXALATE CRYSTALS,URINE MANY /hpf; COMMENT (UR) CULTURE INDICATED; COMMENT2 (UR) MUCOUS PRESENT; CULTURE IF INDICATED CULTURE INDICATED; RBC, URINE 0-3 /hpf (0-3); WBC, URINE 0-2 /hpf (0-5)
[2017-05-13] MEDS ORDERED: ONDANSETRON HCL 4 MG/2 ML VIAL IV PUSH ONE (21:15)
[2017-05-13] MEDS ORDERED: HYDROmorphone HCL PF 1 MG/ML VIAL IV PUSH ONE (21:15)
[2017-05-13] MEDS ORDERED: SODIUM CHLOR 0.9% 1000 ML INJ 1,000 ML IV SCH (21:15)
[2017-05-13 21:33] VITALS: BP 155/98; PULSE 75; RESP 17; O2SAT 98
[2017-05-13 21:43] LABS: AUTOMATED NEUTROPHIL # 4.1 TH/MM3 (1.8-7.7); BASOPHIL # 0.1 TH/MM3 (0-0.2); BASOPHIL % 0.9 % (0.0-2.0); EOSINOPHIL # 0.1 TH/MM3 (0-0.4); EOSINOPHIL % 1.3 % (0.0-4.0); HEMATOCRIT 34.5 % (35.0-46.0); HEMO FLAGS DIFF FINAL; LYMPHOCYTE # 2.7 TH/MM3 (1.0-4.8); MEAN CELL VOLUME 83.7 FL (80.0-100.0); MEAN CORPUSCULAR HGB CONC 33.4 % (32.0-36.0); MONO % 7.4 % (0.0-8.0); NEUT % 54.4 % (16.0-70.0); PLATELET COUNT 270 TH/MM3 (150-450); RED BLOOD COUNT 4.11 MIL/MM3 (4.00-5.30); RED CELL DISTRIBUTION WIDTH 15.1 % (11.6-17.2); WHITE BLOOD COUNT 7.6 TH/MM3 (4.0-11.0)
[2017-05-13 21:51] VITALS: BP 154/87; PULSE 72
[2017-05-13 21:54] LABS: CHLORIDE 108 MEQ/L (98-107); POTASSIUM 4.2 MEQ/L (3.5-5.1); SODIUM (NA) 138 MEQ/L (136-145)
[2017-05-13 21:57] LABS: ANION GAP 6 MEQ/L (5-15); BICARBONATE 24.3 MEQ/L (21.0-32.0)
[2017-05-13 21:58] LABS: BLOOD UREA NITROGEN 12 MG/DL (7-18)
--- NOTE | 2017-05-13 21:59 | RADRPT ---
EXAM DATE/TIME: 05/13/2017 21:34 [facility] COMPARISON: CT ABDOMEN & PELVIS W/O CONTRAST, January 21, 2017, 23:02. INDICATIONS : Bilateral flank pain. ORAL CONTRAST: No oral contrast ingested. RADIATION DOSE: 15.00 CTDIvol (mGy) MEDICAL HISTORY : Diverticulitis. Hernia, hiatal. Gastroesophageal reflux disease.Lupus. Hypertension. SURGICAL HISTORY : Appendectomy.Urethral mesh. ENCOUNTER: Initial ACUITY: 1 day PAIN SCALE: 8/10 LOCATION: Bilateral flank TECHNIQUE: Volumetric scanning of the abdomen and pelvis was performed. Using automated exposure control and ad justment of the mA and/or kV according to patient size, radiation dose was kept as low as reasonably achievable to obtain optimal diagnostic quality images. DICOM format image data is available electro nically for review and comparison. FINDINGS: LOWER LUNGS: The visualized lower lungs are clear. I believe there is early emphysema. LIVER: Homogeneous density without lesion. There is no dilation of the biliary tree. No calcified gallston es. SPLEEN: Normal size without lesion. PANCREAS: Within normal limits. KIDNEYS: Normal in size and shape. There is no mass, stone, or hydronephrosis. ADRENAL GLANDS: Within normal limits. VASCULAR: Atherosclerosis seen of the abdominal aorta. No aneurysm. BOWEL/MESENTERY: The stomach, small bowel, and colon demonstrate no acute abnormality. There is no free intraperitone al air or fluid. Previous appendectomy. ABDOMINAL WALL: Within normal limits. RETROPERITONEUM: There is no lymphadenopathy. BLADDER: No wall thickening or mass. REPRODUCTIVE: Within normal limits. INGUINAL: There is no lymphadenopathy or hernia. MUSCULOSKELETAL: Within normal limits for patient age. CONCLUSION: No acute abnormality demonstrated. Stepan Wayne MD on May 13, 2017 at 21:57 Board Certified Radiologist. This report was verified electronically.
[2017-05-13 22:00] LABS: ALT (GPT) 14 U/L (10-53); AST (GOT) 11 U/L (15-37)
[2017-05-13 22:01] LABS: GLOMERULAR FILTRATION RATE 81 ML/MIN (>89)
[2017-05-13 22:02] LABS: TOTAL BILIRUBIN ADULT 0.3 MG/DL (0.2-1.0)
[2017-05-13 22:03] LABS: ALKALINE PHOSPHATASE 66 U/L (45-117)
[2017-05-13] MEDS ORDERED: HYDR-3534 PO (22:17)
[2017-05-13 22:50] VITALS: BP 144/81; PULSE 71; RESP 16; O2SAT 98
== END 2017-05-13 23:13 | disposition home or self-care (01) ==
LOC: PHED 19:57
DX: K52.9 Noninfective gastroenteritis and colitis, unspecified (principal); J44.9 Chronic obstructive pulmonary disease, unspecified; M32.9 Systemic lupus erythematosus, unspecified; Z90.49 Acquired absence of other specified parts of digestive tract; I10 Essential (primary) hypertension; E78.00 Pure hypercholesterolemia, unspecified
CPT/HCPCS: 74176; 80053; 81001; 85025; 87086; 96361; 96374; 96375; 99285; J1170; J2405; J7030

== ENCOUNTER 2017-07-21 11:14 | Emergency (ER) | payer SELFPAY ==
[~2017-07-21] VITALS: Ht 172.7 cm; Wt 76.7 kg
[~2017-07-21 11:14] MED LIST changes: +HYDR-3534 PO; -NAPR550 PO; -PLAQ200T PO; -PROM12.54 PO
[2017-07-21 11:22] VITALS: BP 173/101; PULSE 71; RESP 16; TEMP 98.5; O2SAT 99
[2017-07-21] MEDS ORDERED: OMEP20TA93 PO (11:39)
[2017-07-21 11:45] LABS: BLOOD, URINE LARGE (NEG); GLUCOSE,URINE NEG (NEG); KETONE, URINE NEG (NEG); NITRITE,URINE NEG (NEG)
[2017-07-21 11:57] LABS: METHOD OF COLLECTION CLEAN CATCH; URINE COLOR YELLOW (YELLW/STRAW)
[2017-07-21 11:58] LABS: COMMENT (UR) CULT NOT INDICATED; CULTURE IF INDICATED CULT NOT INDICATED; MUCUS URINE FEW /lpf (OCC); RBC, URINE 0-3 /hpf (0-3); SQUAMOUS EPITHELIAL CELL URINE 0-5 /hpf (0-5); WBC, URINE 0-2 /hpf (0-5)
--- NOTE | 2017-07-21 12:28 | PD ---
HPI Chief Complaint: Flank/Kidney Pain Time Seen by Provider: 12:13 Travel History International Travel<30 days: No Contact w/Intl Traveler<30days: No Traveled to known affect area: No History of Present Illness HPI This 46-year-old female is complaining of right flank pain. She says she is having the pain for about 2 days. She has had this pain in the past. She has noted that it seems to occur during her period. She does have a history of lupus and is having a flare now. The flare has been manifested as the lupus rash as well as arthralgias. She has responded well in the past steroids. She had been on PLAQUINYL but has not been able to afford it. She was here on May 13 with a similar pain and at that time had a negative CT scan [facility] Past Medical History Hx Anticoagulant Therapy: No Arthritis: Yes Asthma: No Autoimmune Disease: Yes (Lupus) Blood Disorders: No Anxiety: Yes Depression: Yes Heart Rhythm Problems: No Cardiac Catheterization: No Cardiovascular Problems: Yes High Cholesterol: Yes Chemotherapy: No Chest Pain: No Congestive Heart Failure: No COPD: Yes Cerebrovascular Accident: No Diabetes: No Diminished Hearing: No Diverticulitis: Yes Endocrine: No Gastrointestinal Disorders: Yes (GERD) GERD: Yes Glaucoma: No Genitourinary: Yes (Urethral sling) Headaches: Yes Hepatitis: No Hiatal Hernia: Yes Hypertension: Yes Immune Disorder: Yes (Lupus) Implanted Vascular Access Dvce: No Medical other: Yes (GERD) Musculoskeletal: Yes (arthritis) Neurologic: No Psychiatric: Yes Reproductive: Yes (CERVICAL DYSPLASIA: AGE 22) Respiratory: Yes (COPD) Immunizations Current: Yes Myocardial Infarction: No Radiation Therapy: No Seizures: No Sleep Apnea: No Thyroid Disease: No Ulcer: No Tetanus Vaccination: < 5 Years PNEUMOCCOCAL Vaccine (Year): 1 ?: Not LMP: now : 4 Para: 2 Miscarriage: 2 Dilation and Curettage (D&C): Yes Tubal Ligation: Yes Past Surgical History Abdominal Surgery: No AICD: No Appendectomy: Yes Body Medical Devices: MESH Cardiac Surgery: Yes (ABLATION 2002 FOR SVT) Section: Yes (2) Coronary Artery Bypass Graft: No Ear Surgery: No Endocrine Surgery: No Eye Surgery: No Genitourinary Surgery: Yes (URINARY SLING/MESH 2008) Gynecologic Surgery: No Hysterectomy: No Joint Replacement: No Neurologic Surgery: No Oral Surgery: No Pacemaker: No Thoracic Surgery: No Other Surgery: Yes Social History Alcohol Use: Yes (Occ.) Tobacco Use: Yes (1 PPD) Substance Use: No Allergies-Medications (Allergen,Severity, Reaction): Coded Allergies: Sulfa (Sulfonamide Antibiotics) (Verified Allergy, Intermediate, Hives, ) chlorhexidine (Verified Allergy, Mild, HIVES, 07/21/17) iodine (Verified Allergy, Mild, HIVES, 07/21/17) not contrast only topical potassium iodide (Verified Allergy, Mild, HIVES, 07/21/17) not contrast only topical povidone-iodine (Verified Allergy, Mild, HIVES, 07/21/17) not contrast only topical sodium iodide (Verified Allergy, Mild, HIVES, 07/21/17) not contrast only topical sodium iodide (Verified Allergy, Mild, HIVES, 07/21/17) not contrast only topical Reported Meds & Prescriptions Reported Meds & Active Scripts Active Propranolol (Propranolol HCl) 40 Mg Tab 40 Mg PO TID Reported Omeprazole 20 Mg Tab 20 Mg PO DAILY Review of Systems General / Constitutional: No: Fever, Chills Eyes: No: Diploplia HENT: No: Headaches, Vertigo Cardiovascular: No: Chest Pain or Discomfort, Palpitations Respiratory: No: Cough, Shortness of Breath Gastrointestinal: No: Nausea Genitourinary: Positive: Flank Pain Musculoskeletal: Positive: Myalgias, Arthralgias, Pain Skin: Positive Rash, No Itching Neurologic: No: Weakness, Dizziness Endocrine: No: Heat Intolerance Hematologic/Lymphatic: No: Easy Bruising Physical Exam Narrative GENERAL: Well-developed female SKIN: Focused skin assessment warm/dry. She has an erythematous malar rash HEAD: Atraumatic. Normocephalic. EYES: Pupils equal and round. No scleral icterus. No injection or drainage. ENT: No nasal bleeding or discharge. Mucous membranes pink and moist. NECK: Trachea midline. No JVD. CARDIOVASCULAR: Regular rate and rhythm. No murmur appreciated. RESPIRATORY: No accessory muscle use. Clear to auscultation. Breath sounds equal bilaterally. GASTROINTESTINAL: Abdomen soft, non-tender, nondistended. Hepatic and splenic margins not palpable. There is some right CVA tenderness MUSCULOSKELETAL: No obvious deformities. No clubbing. No cyanosis. No edema. NEUROLOGICAL: Awake and alert. No obvious cranial nerve deficits. Motor grossly within normal limits. Normal speech. PSYCHIATRIC: Appropriate mood and affect; insight and judgment normal. Data Data Last Documented VS Vital Signs Date Time Temp Pulse Resp B/P (MAP) Pulse Ox O2 Delivery O2 Flow Rate FiO2 07/21/17 12:58 57 16 175/79 (111) 98 Room Air 07/21/17 11:22 98.5 Orders Orders Urinalysis - C+S If Indicated (07/21/17 11:17) Ed Urine Pregnancytest Poc (07/21/17 11:34) Complete Blood Count With Diff (07/21/17 12:23) Basic Metabolic Panel (Bmp) (07/21/17 12:23) Acetamin-Hydrocod 325-5 Mg ([place] 5-325 (07/21/17 12:30) Labs Laboratory Tests Test 07/21/17 11:30 07/21/17 12:00 Urine Collection Type CLEAN CATCH Urine Color YELLOW Urine Turbidity CLEAR Urine pH 6.0 Urine Specific [place] 1.016 Urine Protein NEG mg/dL Urine Glucose (UA) NEG mg/dL Urine Ketones NEG mg/dL Urine Occult Blood LARGE Urine Nitrite NEG Urine Bilirubin NEG Urine Leukocyte Esterase NEG Urine RBC 0-3 /hpf Urine WBC 0-2 /hpf Urine Squamous Epithelial Cells 0-5 /hpf Urine Mucus FEW /lpf Microscopic Urinalysis Comment CULT NOT INDICATED White Blood Count 7.0 TH/MM3 Red Blood Count 4.21 MIL/MM3 Hemoglobin 11.3 GM/DL Hematocrit 34.6 % Mean Corpuscular Volume 82.1 FL Mean Corpuscular Hemoglobin 26.9 PG Mean Corpuscular Hemoglobin Concent 32.8 % Red Cell Distribution Width 15.2 % Platelet Count 369 TH/MM3 Mean Platelet Volume 9.0 FL CBC Comment AUTO DIFF Blood Urea Nitrogen 11 MG/DL Creatinine 0.77 MG/DL Random Glucose 78 MG/DL Calcium Level 8.6 MG/DL Sodium Level 138 MEQ/L Potassium Level 3.7 MEQ/L Chloride Level 107 MEQ/L Carbon Dioxide Level 23.2 MEQ/L Anion Gap 8 MEQ/L Estimat Glomerular Filtration Rate 81 ML/MIN [facility] Medical Decision Making Medical Screen Exam Complete: Yes Emergency Medical Condition: Yes Medical Record Reviewed: Yes Differential Diagnosis Differential includes lupus flare, musculoskeletal pain, renal colic Narrative Course Urinalysis is negative today. A CT scan 6 weeks ago was negative for stones. Patient is stable for discharge. I will prescribe prednisone taper and Lortab for pain Diagnosis Primary Impression: Exacerbation of systemic lupus Scripts Hydrocodone-Acetaminophen (Hydrocodone-Acetaminophen) 7.5-300 Mg Tab 1 TAB PO Q4H Y for PAIN, #20 TAB 0 Refills Prov: Vikash South MD 07/21/17 Prednisone (Prednisone) 20 Mg Tab 20 MG PO DIRECTED, #24 TAB 0 Refills Take 60 MG daily x 4 days, then 40 MG x 4 days, then 20 MG daily x 4 days. Prov: Vikash South MD 07/21/17 Disposition: DISCHARGE HOME Condition: Stable Vikash South MD Jul 21, 2017 12:28
[2017-07-21] MEDS ORDERED: ACETAMINOPHEN/HYDROcodone 325 MG/5 MG TAB PO ONE (12:30)
[2017-07-21 12:37] LABS: HEMATOCRIT 34.6 % (35.0-46.0); MEAN CELL VOLUME 82.1 FL (80.0-100.0); MEAN CORPUSCULAR HEMOGLOBIN 26.9 PG (27.0-34.0); MEAN CORPUSCULAR HGB CONC 32.8 % (32.0-36.0); PLATELET COUNT 369 TH/MM3 (150-450); RED BLOOD COUNT 4.21 MIL/MM3 (4.00-5.30); RED CELL DISTRIBUTION WIDTH 15.2 % (11.6-17.2)
[2017-07-21 12:40] LABS: HEMO FLAGS AUTO DIFF
[2017-07-21 12:44] LABS: POTASSIUM 3.7 MEQ/L (3.5-5.1)
[2017-07-21 12:49] LABS: BICARBONATE 23.2 MEQ/L (21.0-32.0)
[2017-07-21 12:58] VITALS: BP 175/79; PULSE 57; RESP 16; O2SAT 98
[2017-07-21 13:05] LABS: BASOPHILS 3 % (0-2); EOSINOPHILS 2 % (0-4); METAMYELOCYTES 1 % (0-1); NEUTROPHIL # MANUAL DIFF 3.6 TH/MM3 (1.8-7.7); POLYS (SEG NEUTROPHILS) 51 % (16-70); WBC DIFF SAMPLE 100
[2017-07-21 13:06] LABS: PLATELET ESTIMATE SMEAR NORMAL (NORMAL); PLATELET MORPHOLOGY NORMAL (NORMAL)
[2017-07-21] MEDS ORDERED: PRED20 PO (13:06)
[2017-07-21] MEDS ORDERED: HYDR-2376 PO (13:06)
[2017-07-21 13:07] LABS: OVALOCYTES 1+ (NORMAL); SCAN/DIFF FINAL DIFF MANUAL
== END 2017-07-21 13:16 | disposition home or self-care (01) ==
LOC: PHED 11:14
DX: M32.9 Systemic lupus erythematosus, unspecified (principal); I10 Essential (primary) hypertension; F17.200 Nicotine dependence, unspecified, uncomplicated
CPT/HCPCS: 80048; 81001; 84703; 85007; 85027; 99284

== ENCOUNTER 2017-08-21 18:29 | Emergency (ER) | payer SELFPAY ==
[~2017-08-21] VITALS: Ht 172.7 cm; Wt 78.4 kg
[~2017-08-21 18:29] MED LIST changes: +HYDR-2376 PO; -HYDR-3534 PO; +OMEP20TA93 PO; +PRED20 PO; -VENL75CA44 PO
[2017-08-21 18:32] VITALS: BP 179/83; PULSE 85; RESP 16; TEMP 98.3; O2SAT 100
[2017-08-21] MEDS ORDERED: ACETAMINOPHEN 325 MG TAB PO ONE (18:45)
[2017-08-21] MEDS ORDERED: ORPHENADRINE CITRATE 100 MG SUSTAINED RELEASE TAB PO ONE (18:45)
[2017-08-21] MEDS ORDERED: SODIUM CHLOR 0.9% 1000 ML INJ 1,000 ML IV ONE (18:45)
[2017-08-21] MEDS ORDERED: diphenhydrAMINE HCL 50 MG/ML VIAL IVP ONE (18:45)
[2017-08-21] MEDS ORDERED: SODIUM CHLORIDE 0.9% FLUSH 10 ML FLUSH IVF PRN (18:45)
[2017-08-21] MEDS ORDERED: PROCHLORPERAZINE INJ 10 MG/2 ML VIAL IVP ONE (18:45)
--- NOTE | 2017-08-21 19:06 | PD ---
HPI Chief Complaint: Headache Time Seen by Provider: 18:36 Travel History International Travel<30 days: No Contact w/Intl Traveler<30days: No Traveled to known affect area: No History of Present Illness HPI The patient is a 46-year-old female who presents to the emergency department for headache. The patient is a 4 day history of intermittent headache which starts in the occipital region and radiates bilaterally to the temporal area. She describes a headache is throbbing, starting in the neck region, states she has tenderness of the mid cervical area. The patient states she will take Toradol home, the headache will resolve, but will return. She does have a history of lupus. She denies any fever, but has had intermittent chills. She has had a history of sinus infections, but notes minimal nasal congestion denies any pain over the frontal sinuses or maxillary sinuses. She does complain of mild nausea without any vomiting. She denies any focal deficits of the upper or lower extremities. The patient has had a workup in the past for neck pain with an MRI, but is never had previous imaging of the brain per the patient's report. PFSH Past Medical History Hx Anticoagulant Therapy: No Arthritis: Yes Asthma: No Autoimmune Disease: Yes (Lupus) Blood Disorders: No Anxiety: Yes Depression: Yes Heart Rhythm Problems: No Cardiac Catheterization: No Cardiovascular Problems: Yes (HTN, CHOL) High Cholesterol: Yes Chemotherapy: No Chest Pain: No Congestive Heart Failure: No COPD: Yes Cerebrovascular Accident: No Diabetes: No Diminished Hearing: No Diverticulitis: Yes Endocrine: No Gastrointestinal Disorders: Yes (GERD) GERD: Yes Glaucoma: No Genitourinary: Yes (Urethral sling) Headaches: Yes Hepatitis: No Hiatal Hernia: Yes Hypertension: Yes Immune Disorder: Yes (Lupus) Implanted Vascular Access Dvce: No Medical other: Yes (GERD) Musculoskeletal: Yes (arthritis) Neurologic: No Psychiatric: Yes Reproductive: Yes (CERVICAL DYSPLASIA: AGE 22) Respiratory: Yes (COPD) Immunizations Current: Yes Myocardial Infarction: No Radiation Therapy: No Seizures: No Sleep Apnea: No Thyroid Disease: No Ulcer: No Tetanus Vaccination: < 5 Years Influenza Vaccination: No PNEUMOCCOCAL Vaccine (Year): 1 ?: Not : 4 Para: 2 Miscarriage: 2 Dilation and Curettage (D&C): Yes Tubal Ligation: Yes Past Surgical History Abdominal Surgery: No AICD: No Appendectomy: Yes Body Medical Devices: MESH Cardiac Surgery: Yes (ABLATION 2002 FOR SVT) Section: Yes (2) Coronary Artery Bypass Graft: No Ear Surgery: No Endocrine Surgery: No Eye Surgery: No Genitourinary Surgery: Yes (URINARY SLING/MESH 2008) Gynecologic Surgery: No Hysterectomy: No Joint Replacement: No Neurologic Surgery: No Oral Surgery: No Pacemaker: No Thoracic Surgery: No Other Surgery: Yes Social History Alcohol Use: Yes (Occ.) Tobacco Use: Yes (1 PPD) Substance Use: No Allergies-Medications (Allergen,Severity, Reaction): Coded Allergies: Sulfa (Sulfonamide Antibiotics) (Verified Allergy, Intermediate, Hives, 08/21/17) chlorhexidine (Verified Allergy, Mild, HIVES, 08/21/17) iodine (Verified Allergy, Mild, HIVES, 08/21/17) not contrast only topical potassium iodide (Verified Allergy, Mild, HIVES, 08/21/17) not contrast only topical povidone-iodine (Verified Allergy, Mild, HIVES, 08/21/17) not contrast only topical sodium iodide (Verified Allergy, Mild, HIVES, 08/21/17) not contrast only topical sodium iodide (Verified Allergy, Mild, HIVES, 08/21/17) not contrast only topical Reported Meds & Prescriptions Reported Meds & Active Scripts Active Fioricet (Mtrgihvjat-Rlzwtmnghsdsw-Qjoljuze) 50-300-40 Mg Cap 1 Cap PO Q4H PRN Ibuprofen 600 Mg Tab 600 Mg PO Q6H PRN Flexeril (Cyclobenzaprine HCl) 10 Mg Tab 10 Mg PO TID 7 Days Propranolol (Propranolol HCl) 40 Mg Tab 40 Mg PO TID Reported Omeprazole 20 Mg Tab 20 Mg PO DAILY Review of Systems Except as stated in HPI: all other systems reviewed are Neg General / Constitutional: No: Fever Eyes: No: Diploplia, Blurred Vision, Photophobia HENT: Positive: Headaches, No: Lightheadedness Cardiovascular: No: Chest Pain or Discomfort Respiratory: No: Shortness of Breath Gastrointestinal: Positive: Nausea, No: Vomiting, Abdominal Pain Musculoskeletal: No: Weakness Neurologic: Positive: Headache, No: Dizziness, Focal Abnormalities, Paresthesia , Sensory Disturbance Physical Exam Narrative GENERAL: Awake, alert, pleasant 46-year-old female who appears her stated age is in no acute respiratory distress. SKIN: Focused skin assessment warm/dry. HEAD: Atraumatic. Normocephalic. EYES: Pupils equal and round. Pupils are 3 mm bilateral and reactive. EOMs are intact. No pain with extraocular movement per patient's report. She is able to see fingers at a distance of 2 feet without difficulty. ENT: No nasal bleeding or discharge. Mucous membranes pink and moist. NECK: Trachea midline. No JVD. Mild tenderness of the posterior cervical region , but she is able to put her chin to her chest, no true meningeal signs. CARDIOVASCULAR: Regular rate and rhythm. No murmur appreciated. RESPIRATORY: No accessory muscle use. Clear to auscultation. Breath sounds equal bilaterally. GASTROINTESTINAL: Abdomen soft, non-tender, nondistended. MUSCULOSKELETAL: No obvious deformities. No clubbing. No cyanosis. No edema. NEUROLOGICAL: Awake and alert. No obvious cranial nerve deficits. Motor grossly within normal limits. Normal speech. Nonfocal. Oriented 4. Follows commands without difficulty. PSYCHIATRIC: Appropriate mood and affect; insight and judgment normal. Data Data Last Documented VS Vital Signs Date Time Temp Pulse Resp B/P (MAP) Pulse Ox O2 Delivery O2 Flow Rate FiO2 08/21/17 19:20 98 Room Air 08/21/17 18:32 98.3 85 16 179/83 (115) Orders Orders Ct Brain W/O Iv Contrast(Rout) (08/21/17 18:45) Ecg Monitoring (08/21/17 18:45) Iv Access Insert/Monitor (08/21/17 18:45) Oximetry (08/21/17 18:45) Sodium Chloride 0.9% Flush (Ns Flush) (08/21/17 18:45) Acetaminophen (Tylenol) (08/21/17 18:45) Prochlorperazine Inj (Compazine Inj) (08/21/17 18:45) Diphenhydramine Inj (Benadryl Inj) (08/21/17 18:45) Sodium Chlor 0.9% 1000 Ml Inj (Ns 1000 M (08/21/17 18:45) Orphenadrine Sr (Norflex Cr) (08/21/17 18:45) MDM Medical Decision Making Medical Screen Exam Complete: Yes Emergency Medical Condition: Yes Medical Record Reviewed: Yes Interpretation(s) CT of the brain reveals no acute intracranial abnormalities. Differential Diagnosis Differential diagnosis includes tension headache, cervical strain, migraine, sinusitis, temporal arteritis, intracranial hemorrhage, subarachnoid hemorrhage , intracranial tumor, cavernous sinus thrombosis. Narrative Course CT of the brain was obtained. IV was established and the patient was administered morphine, Benadryl, Zofran, Tylenol, Compazine, and IV fluids. CT the brain is negative. The patient most likely has tension/muscular skeletal related muscle spasm resulting in headache. The patient will be discharged home on ibuprofen and Flexeril. She will be provided Fioricet as needed for breakthrough pain. She is advised to follow-up with a primary physician and return if symptoms worsen or progress. Diagnosis Primary Impression: Cephalgia Qualified Codes: R51 - Headache Patient Instructions: General Instructions, Narcotic given in the ED Additional Instructions: Medications as directed. Follow-up with her primary physician. Return if symptoms worsen or progress. Med/Other Pt SpecificInfo: Prescription(s) given Scripts Qstqetkdlq-Gopyiufqrrcsv-Ysrvlgqm (Fioricet) 50-300-40 Mg Cap 1 CAP PO Q4H Y for HEADACHE, #10 CAP 0 Refills Prov: Niraj Alfonso MD 08/21/17 Ibuprofen (Ibuprofen) 600 Mg Tab 600 MG PO Q6H Y for Pain/Inflammation, #20 TAB 0 Refills Prov: Niraj Alfonso MD 08/21/17 Cyclobenzaprine (Flexeril) 10 Mg Tab 10 MG PO TID for Muscle Spasm for 7 Days, #21 TAB 0 Refills Prov: Niraj Alfonso MD 08/21/17 Disposition: 01 DISCHARGE HOME Condition: Stable Niraj Alfonso MD Aug 21, 2017 19:06
--- NOTE | 2017-08-21 19:07 | RADRPT ---
EXAM DATE/TIME: 08/21/2017 18:54 [facility] COMPARISON: No previous studies available for comparison. INDICATIONS : Cephalgia x 4 days. RADIATION DOSE: 63.28 CTDIvol (mGy) MEDICAL HISTORY : Chronic obstructive pulmonary disease. Gastroesophageal reflux disease. Hypertension. SURGICAL HISTORY : Tubal ligation. section. ENCOUNTER: Initial ACUITY: 4 - 6 days PAIN SCALE: 8/10 LOCATION: cranial TECHNIQUE: Multiple contiguous axial images were obtained of the head. Using automated exposure control and adj ustment of the mA and/or kV according to patient size, radiation dose was kept as low as reasonably a chievable to obtain optimal diagnostic quality images. DICOM format image data is available electro nically for review and comparison. FINDINGS: CEREBRUM: The ventricles are normal for age. No evidence of midline shift, mass lesion, hemorrhage or acute in farction. No extra-axial fluid collections are seen. POSTERIOR FOSSA: The cerebellum and brainstem are intact. The 4th ventricle is midline. The cerebellopontine angle i s unremarkable. EXTRACRANIAL: The visualized portion of the orbits is intact. SKULL: The calvaria is intact. No evidence of skull fracture. CONCLUSION: 1. No acute intracranial abnormalities. Rock Diggs MD on August 21, 2017 at 19:03 Board Certified Radiologist. This report was verified electronically.
[2017-08-21 19:20] VITALS: O2SAT 98
[2017-08-21] MEDS ORDERED: BUTA1CAP PO (19:42)
[2017-08-21] MEDS ORDERED: IBUP-232 PO (19:42)
[2017-08-21] MEDS ORDERED: CYCL10TA PO (19:42)
[2017-08-21 21:13] VITALS: BP 159/95; PULSE 69; RESP 20
[2017-08-21 21:39] VITALS: BP 159/95
== END 2017-08-21 21:39 | disposition home or self-care (01) ==
LOC: PHED 18:29
DX: R51 Headache (principal); R11.0 Nausea; M32.9 Systemic lupus erythematosus, unspecified; I10 Essential (primary) hypertension; J44.9 Chronic obstructive pulmonary disease, unspecified; K21.9 Gastro-esophageal reflux disease without esophagitis; E78.00 Pure hypercholesterolemia, unspecified; F41.9 Anxiety disorder, unspecified; F32.9 Major depressive disorder, single episode, unspecified
CPT/HCPCS: 70450; 96361; 96374; 96375; 99285; J0780; J1200; J7030

== ENCOUNTER 2017-11-12 19:31 | Emergency (ER) | payer SELFPAY ==
[~2017-11-12] VITALS: Ht 172.7 cm; Wt 77.0 kg
[~2017-11-12 19:31] MED LIST changes: +BUTA1CAP PO; +CYCL10TA PO; -HYDR-2376 PO; +IBUP-232 PO; -PRED20 PO
[2017-11-12 19:36] VITALS: BP 146/86; PULSE 68; RESP 16; TEMP 98.5; O2SAT 98
--- NOTE | 2017-11-12 19:52 | PD ---
HPI Chief Complaint: Chest Pain Time Seen by Provider: 19:47 Travel History International Travel<30 days: No Contact w/Intl Traveler<30days: No Traveled to known affect area: No History of Present Illness HPI The patient is a 47-year-old female that complains of a burning, pleuritic chest pain, worsening with cough and deep breathing since this morning. The pain is below both breasts, left greater than right. The pain is constant although worse with coughing and deep breathing but it never goes away. She does have diaphoresis and shortness of breath but denies any nausea or radiation of pain. She denies any history of heart disease. She denies any fever. The patient is on her menstrual period. PFSH Past Medical History Hx Anticoagulant Therapy: No Arthritis: Yes Asthma: No Autoimmune Disease: Yes (Lupus) Blood Disorders: No Anxiety: Yes Depression: Yes Heart Rhythm Problems: No Cardiac Catheterization: No Cardiovascular Problems: Yes (HTN, CHOL, H/O SVT) High Cholesterol: Yes Chemotherapy: No Chest Pain: No Congestive Heart Failure: No COPD: Yes Cerebrovascular Accident: No Diabetes: No Diminished Hearing: No Diverticulitis: Yes Endocrine: No Gastrointestinal Disorders: Yes (GERD) GERD: Yes Glaucoma: No Genitourinary: Yes (Urethral sling) Headaches: Yes Hepatitis: No Hiatal Hernia: Yes Hypertension: Yes Immune Disorder: Yes (Lupus) Implanted Vascular Access Dvce: No Medical other: Yes (GERD) Musculoskeletal: Yes (arthritis) Neurologic: No Psychiatric: Yes Reproductive: Yes (CERVICAL DYSPLASIA: AGE 22) Respiratory: Yes (COPD) Immunizations Current: Yes Myocardial Infarction: No Radiation Therapy: No Seizures: No Sleep Apnea: No Thyroid Disease: No Ulcer: No Tetanus Vaccination: < 5 Years Influenza Vaccination: Yes PNEUMOCCOCAL Vaccine (Year): 1 ?: Not : 4 Para: 2 Miscarriage: 2 Dilation and Curettage (D&C): Yes Tubal Ligation: Yes Past Surgical History Abdominal Surgery: No AICD: No Appendectomy: Yes Body Medical Devices: MESH Cardiac Surgery: Yes (ABLATION 2002 FOR SVT) Section: Yes (2) Coronary Artery Bypass Graft: No Ear Surgery: No Endocrine Surgery: No Eye Surgery: No Genitourinary Surgery: Yes (URINARY SLING/MESH 2008) Gynecologic Surgery: No Hysterectomy: No Joint Replacement: No Neurologic Surgery: No Oral Surgery: No Pacemaker: No Thoracic Surgery: No Other Surgery: Yes Social History Alcohol Use: Yes (Occ.) Tobacco Use: Yes (1 PPD) Substance Use: No Allergies-Medications (Allergen,Severity, Reaction): Coded Allergies: Sulfa (Sulfonamide Antibiotics) (Verified Allergy, Intermediate, Hives, ) chlorhexidine (Verified Allergy, Mild, HIVES, 11/12/17) iodine (Verified Allergy, Mild, HIVES, 11/12/17) not contrast only topical potassium iodide (Verified Allergy, Mild, HIVES, 11/12/17) not contrast only topical povidone-iodine (Verified Allergy, Mild, HIVES, 11/12/17) not contrast only topical sodium iodide (Verified Allergy, Mild, HIVES, 11/12/17) not contrast only topical sodium iodide (Verified Allergy, Mild, HIVES, 11/12/17) not contrast only topical Reported Meds & Prescriptions Reported Meds & Active Scripts Active Ibuprofen 600 Mg Tab 600 Mg PO TID Propranolol (Propranolol HCl) 40 Mg Tab 40 Mg PO TID Reported Omeprazole 20 Mg Tab 20 Mg PO DAILY Review of Systems Except as stated in HPI: all other systems reviewed are Neg Physical Exam Narrative GENERAL: The patient is alert, oriented 3 in moderate apparent distress with her chest discomfort. Her vital signs show blood pressure 146/86 but otherwise are normal. SKIN: Focused skin assessment warm/dry. HEAD: Atraumatic. Normocephalic. EYES: Pupils equal and round. No scleral icterus. No injection or drainage. ENT: No nasal bleeding or discharge. Mucous membranes pink and moist. NECK: Trachea midline. No JVD. CARDIOVASCULAR: Regular rate and rhythm. No murmur appreciated. I cannot reproduce the patient's chest pain by pressing on the chest wall where she perceives her pain. RESPIRATORY: No accessory muscle use. Clear to auscultation. Breath sounds equal bilaterally. GASTROINTESTINAL: Abdomen soft, non-tender, nondistended. Hepatic and splenic margins not palpable. No guarding or rebound is present. MUSCULOSKELETAL: No obvious deformities. No clubbing. No cyanosis. No edema. NEUROLOGICAL: Awake and alert. No obvious cranial nerve deficits. Motor grossly within normal limits. Normal speech. PSYCHIATRIC: Appropriate mood and affect; insight and judgment normal. Data Data Last Documented VS Vital Signs Date Time Temp Pulse Resp B/P (MAP) Pulse Ox O2 Delivery O2 Flow Rate FiO2 11/12/17 20:08 100 Room Air 11/12/17 19:36 98.5 68 16 Orders Orders Complete Blood Count With Diff (11/12/17 19:52) Comprehensive Metabolic Panel (11/12/17 19:52) Troponin I (11/12/17 19:52) Urinalysis - C+S If Indicated (11/12/17 19:52) Iv Access Insert/Monitor (11/12/17 19:52) Ecg Monitoring (11/12/17 19:52) Oximetry (11/12/17 19:52) Oxygen Administration (11/12/17 19:52) Chest, Pa & Lat (11/12/17 19:52) Sodium Chloride 0.9% Flush (Ns Flush) (11/12/17 20:00) Electrocardiogram (11/12/17 19:39) Ketorolac Inj (Toradol Inj) (11/12/17 21:30) Labs Laboratory Tests Test 11/12/17 20:08 11/12/17 20:30 White Blood Count 8.2 TH/MM3 Red Blood Count 4.25 MIL/MM3 Hemoglobin 11.5 GM/DL Hematocrit 34.5 % Mean Corpuscular Volume 81.2 FL Mean Corpuscular Hemoglobin 27.1 PG Mean Corpuscular Hemoglobin Concent 33.4 % Red Cell Distribution Width 17.6 % Platelet Count 358 TH/MM3 Mean Platelet Volume 9.3 FL Neutrophils (%) (Auto) 54.9 % Lymphocytes (%) (Auto) 35.1 % Monocytes (%) (Auto) 5.9 % Eosinophils (%) (Auto) 1.7 % Basophils (%) (Auto) 2.4 % Neutrophils # (Auto) 4.5 TH/MM3 Lymphocytes # (Auto) 2.9 TH/MM3 Monocytes # (Auto) 0.5 TH/MM3 Eosinophils # (Auto) 0.1 TH/MM3 Basophils # (Auto) 0.2 TH/MM3 CBC Comment DIFF FINAL Differential Comment Blood Urea Nitrogen 12 MG/DL Creatinine 0.84 MG/DL Random Glucose 92 MG/DL Total Protein 7.1 GM/DL Albumin 3.2 GM/DL Calcium Level 8.4 MG/DL Alkaline Phosphatase 72 U/L Aspartate Amino Transf (AST/SGOT) 15 U/L Alanine Aminotransferase (ALT/SGPT) 12 U/L Total Bilirubin 0.1 MG/DL Sodium Level 139 MEQ/L Potassium Level 4.0 MEQ/L Chloride Level 108 MEQ/L Carbon Dioxide Level 25.6 MEQ/L Anion Gap 5 MEQ/L Estimat Glomerular Filtration Rate 73 ML/MIN Troponin I LESS THAN 0.02 NG/ML Urine Color YELLOW Urine Turbidity CLEAR Urine pH 6.0 Urine Specific [place] GREATER/EQUAL 1.030 Urine Protein NEG mg/dL Urine Glucose (UA) NEG mg/dL Urine Ketones TRACE mg/dL Urine Occult Blood LARGE Urine Nitrite NEG Urine Bilirubin NEG Urine Urobilinogen 0.2 MG/DL Urine Leukocyte Esterase NEG Urine RBC 10-14 /hpf Urine WBC 3-5 /hpf Urine Mucus MOD /lpf Microscopic Urinalysis Comment CULT NOT INDICATED MDM Medical Decision Making Medical Screen Exam Complete: Yes Emergency Medical Condition: Yes Medical Record Reviewed: Yes Interpretation(s) The EKG shows sinus rhythm with a rate of 68 and is completely normal. The CBC shows a hemoglobin 11.5 and hematocrit of 34.5 but is otherwise unremarkable. The chest x-ray shows no acute cardiopulmonary disease. The complete metabolic profile shows a GFR of 73, albumin 3.2, calcium 8.4 but is otherwise normal. The troponin I is normal. The urinalysis shows trace ketones, large blood, 10- 14 red cells but is otherwise normal and cultures not indicated. Differential Diagnosis Pleurisy, pneumonia, acute coronary syndrome-unlikely, non-STEMI, pneumothorax- highly unlikely, chest wall pain, pulmonary embolus-extremely unlikely, myocarditis, pericarditis Narrative Course The patient appears to have pleurisy. There is no evidence of any cardiac involvement. Plan: The patient will be given Motrin 600 mg 3 times daily. She needs to take it regularly, 1 every 8 hours for the first week. Diagnosis Primary Impression: Pleurisy Additional Instructions: For the first 5-7 days, take the Motrin regularly, 1 tablet 3 times daily. This will establish anti-inflammatory levels. Usually the pain will subside when this occurs. Follow-up with your primary care physician as soon as possible. Med/Other Pt SpecificInfo: Prescription(s) given Scripts Ibuprofen (Ibuprofen) 600 Mg Tab 600 MG PO TID, #33 TAB 0 Refills Prov: Tate Chatman MD 11/12/17 Disposition: 01 DISCHARGE HOME Condition: Stable Tate Chatman MD Nov 12, 2017 19:52
[2017-11-12] MEDS ORDERED: SODIUM CHLORIDE 0.9% FLUSH 10 ML FLUSH IVF PRN (20:00)
[2017-11-12 20:08] VITALS: O2SAT 100
[2017-11-12 20:20] LABS: CHLORIDE 108 MEQ/L (98-107); SODIUM (NA) 139 MEQ/L (136-145)
[2017-11-12 20:24] LABS: ALBUMIN 3.2 GM/DL (3.4-5.0); BICARBONATE 25.6 MEQ/L (21.0-32.0); BLOOD UREA NITROGEN 12 MG/DL (7-18); CALCIUM 8.4 MG/DL (8.5-10.1); GLUCOSE,RANDOM 92 MG/DL (74-106)
[2017-11-12 20:27] LABS: ALT (GPT) 12 U/L (10-53); AST (GOT) 15 U/L (15-37); CREATININE 0.84 MG/DL (0.50-1.00); GLOMERULAR FILTRATION RATE 73 ML/MIN (>89)
[2017-11-12 20:29] LABS: TOTAL BILIRUBIN ADULT 0.1 MG/DL (0.2-1.0); TOTAL PROTEIN 7.1 GM/DL (6.4-8.2)
[2017-11-12 20:30] LABS: ALKALINE PHOSPHATASE 72 U/L (45-117)
[2017-11-12 20:32] LABS: TROPONIN I LESS THAN 0.02 NG/ML (0.02-0.05)
[2017-11-12 20:36] LABS: AUTOMATED NEUTROPHIL # 4.5 TH/MM3 (1.8-7.7); BASOPHIL # 0.2 TH/MM3 (0-0.2); BASOPHIL % 2.4 % (0.0-2.0); EOSINOPHIL # 0.1 TH/MM3 (0-0.4); EOSINOPHIL % 1.7 % (0.0-4.0); HEMATOCRIT 34.5 % (35.0-46.0); HEMOGLOBIN 11.5 GM/DL (11.6-15.3); LYMPH % 35.1 % (9.0-44.0); LYMPHOCYTE # 2.9 TH/MM3 (1.0-4.8); MEAN CELL VOLUME 81.2 FL (80.0-100.0); MEAN CORPUSCULAR HEMOGLOBIN 27.1 PG (27.0-34.0); MEAN CORPUSCULAR HGB CONC 33.4 % (32.0-36.0); MEAN PLATELET VOLUME 9.3 FL (7.0-11.0); MONO % 5.9 % (0.0-8.0); MONOCYTE # 0.5 TH/MM3 (0-0.9); NEUT % 54.9 % (16.0-70.0); PLATELET COUNT 358 TH/MM3 (150-450); RED BLOOD COUNT 4.25 MIL/MM3 (4.00-5.30); RED CELL DISTRIBUTION WIDTH 17.6 % (11.6-17.2); WHITE BLOOD COUNT 8.2 TH/MM3 (4.0-11.0)
[2017-11-12 20:37] LABS: BILIRUBIN, URINE NEG (NEG); BLOOD, URINE LARGE (NEG); GLUCOSE,URINE NEG (NEG); KETONE, URINE TRACE mg/dL (NEG); NITRITE,URINE NEG (NEG); URINE COLOR YELLOW (YELLW/STRAW); URINE LEUKOCYTE ESTERASE NEG (NEG)
[2017-11-12 20:43] LABS: MUCUS URINE MOD /lpf (OCC)
[2017-11-12] MEDS ORDERED: IBUP-232 PO (21:18)
--- NOTE | 2017-11-12 21:20 | RADRPT ---
EXAM DATE/TIME: 11/12/2017 20:16 [facility] COMPARISON: CHEST PA & LAT, May 01, 2015, 16:44. INDICATIONS : Shortness of breath and chest discomfort. MEDICAL HISTORY : Hypertension. Chronic obstructive pulmonary disease. Gastroesophageal reflux disease. SVT. SURGICAL HISTORY : Ablation. ENCOUNTER: Initial ACUITY: 2 days PAIN SCORE: 6/10 LOCATION: Bilateral chest FINDINGS: PA and lateral views of the chest demonstrate the lungs to be symmetrically aerated without evidence of mass, infiltrate or effusion. The cardiomediastinal contours are unremarkable. Osseous structure s are intact. CONCLUSION: No acute disease. Stepan Mckenna MD on November 12, 2017 at 21:18 Board Certified Radiologist. This report was verified electronically.
[2017-11-12] MEDS ORDERED: KETOROLAC TROMETHAMINE 60 MG/2 ML (IM) VIAL IVP ONE (21:30)
[2017-11-12 21:45] VITALS: BP 136/81; PULSE 61; RESP 16; O2SAT 99
--- NOTE | 2017-11-13 11:38 | EKG ---
Date Performed: 11/12/2017 Time Performed: 19:39:34 PTAGE: 47 years EKG: Sinus rhythm NORMAL ECG PREVIOUS TRACING : 08/19/2016 19.04 Since the previous tracing, no significant change noted DOCTOR: Gordy Puentes Interpretating Date/Time 11/13/2017 11:32:20
== END 2017-11-12 21:51 | disposition home or self-care (01) ==
LOC: PHED 19:31
DX: R09.1 Pleurisy (principal); F17.200 Nicotine dependence, unspecified, uncomplicated; I10 Essential (primary) hypertension; K21.9 Gastro-esophageal reflux disease without esophagitis
CPT/HCPCS: 71046; 80053; 81001; 84484; 85025; 93005; 96374; 99285; J1885

== ENCOUNTER 2017-12-15 19:02 | Emergency (ER) | payer SELFPAY ==
[~2017-12-15] VITALS: Ht 172.7 cm; Wt 76.5 kg
[~2017-12-15 19:02] MED LIST changes: -BUTA1CAP PO; -CYCL10TA PO
[2017-12-15 19:15] VITALS: BP 158/100; PULSE 7; PULSE 88; RESP 20; TEMP 98.4; O2SAT 99
--- NOTE | 2017-12-15 19:43 | PD ---
HPI Chief Complaint: General Weakness Time Seen by Provider: 19:28 Travel History International Travel<30 days: No Contact w/Intl Traveler<30days: No Traveled to known affect area: No History of Present Illness HPI Patient comes emerge from complaining of right shoulder pain that began today on driving back to the area from [place]. Patient states that she has a history of this is been dealing with it over the past year. Patient states that she used to specialist told her that it was secondary to stenosis in her spine is causing the pain. Patient reports his pain starts her neck radiates to her shoulder. Pain is worse with movement of her right upper extremity. Patient denies taking anything for this. Denies any numbness or tingling, chest pain, shortness of breath, headache, dizziness, change in vision, loss change in bowel or bladder, abdominal pain, nausea, vomiting, weakness, fevers, or history of IV drug use. Patient states that she did feel like her right leg "buckled" on her twice yesterday denies any other symptoms. PFSH Past Medical History Hx Anticoagulant Therapy: No Arthritis: Yes Asthma: No Autoimmune Disease: Yes (Lupus) Blood Disorders: No Anxiety: Yes Depression: Yes Heart Rhythm Problems: No Cardiac Catheterization: No Cardiovascular Problems: Yes (HTN, CHOL, SVT) High Cholesterol: Yes Chemotherapy: No Chest Pain: No Congestive Heart Failure: No COPD: Yes Cerebrovascular Accident: No Diabetes: No Diminished Hearing: No Diverticulitis: Yes Endocrine: No Gastrointestinal Disorders: Yes (GERD) GERD: Yes Glaucoma: No Genitourinary: Yes (Urethral sling) Headaches: Yes Hepatitis: No Hiatal Hernia: Yes Hypertension: Yes Immune Disorder: Yes (Lupus) Implanted Vascular Access Dvce: No Medical other: Yes (spinal stenosis) Musculoskeletal: Yes (arthritis) Neurologic: No Psychiatric: Yes Reproductive: Yes (CERVICAL DYSPLASIA: AGE 22) Respiratory: Yes (COPD) Immunizations Current: Yes Myocardial Infarction: No Radiation Therapy: No Seizures: No Sleep Apnea: No Thyroid Disease: No Ulcer: No Tetanus Vaccination: > 5 Years Influenza Vaccination: Yes PNEUMOCCOCAL Vaccine (Year): 1 ?: Unknown LMP: 12/06/17 : 4 Para: 2 Miscarriage: 2 Dilation and Curettage (D&C): Yes Tubal Ligation: Yes Past Surgical History Abdominal Surgery: No AICD: No Appendectomy: Yes Body Medical Devices: MESH Cardiac Surgery: Yes (ABLATION 2002 FOR SVT) Section: Yes (2) Coronary Artery Bypass Graft: No Ear Surgery: No Endocrine Surgery: No Eye Surgery: No Genitourinary Surgery: Yes (URINARY SLING/MESH 2008) Gynecologic Surgery: No Hysterectomy: No Joint Replacement: No Neurologic Surgery: No Oral Surgery: No Pacemaker: No Thoracic Surgery: No Other Surgery: Yes Social History Alcohol Use: No Tobacco Use: Yes (/4 PPD) Substance Use: No Allergies-Medications (Allergen,Severity, Reaction): Coded Allergies: Sulfa (Sulfonamide Antibiotics) (Verified Allergy, Intermediate, Hives, 12/15/17) chlorhexidine (Verified Allergy, Mild, HIVES, 12/15/17) iodine (Verified Allergy, Mild, HIVES, 12/15/17) not contrast only topical potassium iodide (Verified Allergy, Mild, HIVES, 12/15/17) not contrast only topical povidone-iodine (Verified Allergy, Mild, HIVES, 12/15/17) not contrast only topical sodium iodide (Verified Allergy, Mild, HIVES, 12/15/17) not contrast only topical sodium iodide (Verified Allergy, Mild, HIVES, 12/15/17) not contrast only topical Reported Meds & Prescriptions Reported Meds & Active Scripts Active Prednisone (21) 10 mg tab Dose Pack (Prednisone) 10 Mg Pack 10 Mg PO DIRECTED Propranolol (Propranolol HCl) 40 Mg Tab 40 Mg PO TID Reported Omeprazole 20 Mg Tab 20 Mg PO DAILY Review of Systems Except as stated in HPI: all other systems reviewed are Neg Physical Exam Narrative GENERAL: Well-developed, well nourished, in no acute distress, and non-ill appearing. SKIN: Focused skin assessment warm and dry. HEAD: Atraumatic. Normocephalic. EYES: Pupils equal and round. EOMI. No scleral icterus. No injection or drainage. ENT: No nasal bleeding or discharge. Mucous membranes pink and moist. NECK: Trachea midline. No JVD. Supple. No nuclear rigidity. No tenderness crepitus or midline cervical spine. CARDIOVASCULAR: Radial pulses 2+, intact, equal bilaterally. Capillary refill less than 2 seconds. RESPIRATORY: No accessory muscle use. No respiratory distress. GASTROINTESTINAL: Abdomen soft, non-tender, nondistended, and no guarding. Hepatic and splenic margins not palpable. No pulsatile mass. MUSCULOSKELETAL: No obvious deformities. No clubbing. No cyanosis. No edema. Full range of motion. Shoulder:FROM equal BL with passive flexion, extension, Abduction, Adduction, internal/external rotation, and pronation/supination. Sensation equal BL deltoid muscles. Pulses equal BL distal to injury. Capillary refill less than 2 seconds distal to injury and equal BL. FROM distal to injury and equal BL. Strength distal to injury equal BL. NV intact distal to injury equal BL. Flexion and extension of thumb equal BL. Equal strength and movement with abduction/adductions of BL fingers. Post Manager strength equal BL. Patient reports pain with passive range of motion of right shoulder. No crepitus. No point tenderness. NEUROLOGICAL: Awake and alert. No obvious cranial nerve deficits. Motor grossly within normal limits. Normal speech. PSYCHIATRIC: Appropriate mood and affect; insight and judgment normal. Data Data Last Documented VS Vital Signs Date Time Temp Pulse Resp B/P (MAP) Pulse Ox O2 Delivery O2 Flow Rate FiO2 12/15/17 19:15 98.4 88 20 158/100 (119) 99 Orders Orders Dexamethasone Inj (Decadron Inj) (12/15/17 19:45) Ed Discharge Order (12/15/17 19:45) MDM Medical Decision Making Medical Screen Exam Complete: Yes Emergency Medical Condition: Yes Differential Diagnosis Fracture, strain, cervical radiculopathy, muscle spasm Narrative Course The patient presented complaining of neck pain with radiation of pain to her right shoulder. There was no history of recent fall or trauma. There was no evidence to support atypical cardiac/angina as an etiology. There is also no evidence to suggest vascular pathology such as TAA or carotid dissection. No fevers or other evidence to suspect infectious processes, abscess, osteomyelitis etc. The patients neurological exam is normal with normal motor and sensory. There is no motor deficits reported or found, and no bowel or bladder incontinence or retention. I suspect the pain is mechanical in nature with radiculopathy. Clinical suspicion, plan of care and management was discussed with the patient. The patient was instructed to follow up with their health care provider. The patient was also instructed to return if the pain worsened, changed, or developed weakness or bowel or bladder trouble. The patient agreed with plan. Patient in no obvious distress upon re-evaluation. Patient was asked if they wanted to speak to my attending, which the patient did not wish to do at this time. Discussed patient with Dr. Izaguirre prior to discharge, who is in agreement plan of care and disposition. Any questions/concerns in reference to patient diagnosis/condition discussed and clarified prior to patient's discharge. Reinforced sheer importance of close follow up with patient's primary physician or primary care clinic. Instructed patient to return to ED immediately, if symptoms return/worsen. Patient showed understanding of above instructions. Further instructions and recommendations were detailed in discharge paperwork. Patient ambulated without difficulty out of ED at discharge. Diagnosis Primary Impression: Cervical radiculopathy Additional Impression: Hypertension Qualified Codes: I10 - Essential (primary) hypertension Referrals: [facility] Patient Instructions: Cervical Radiculopathy (ED), General Instructions Additional Instructions: Follow-up with your primary care physician in 3-5 days for reevaluation and possible adjustment of your blood pressure medication. Take all medication as prescribed. Return to the emergency department if symptoms get worse. Med/Other Pt SpecificInfo: Prescription(s) given Scripts Prednisone (21) 10 mg tab Dose Pack (Prednisone (21) 10 mg tab Dose Pack) 10 Mg Pack 10 MG PO DIRECTED for Inflammation, #1 DSPK 0 Refills Prov: Braxton Izaguirre MD 12/15/17 Disposition: 01 DISCHARGE HOME Condition: Stable Melvin Turner December 15, 2017 19:43
[2017-12-15] MEDS ORDERED: PRED10PA PO (19:44)
[2017-12-15] MEDS ORDERED: DEXAMETHASONE SOD PHOS 20 MG/5 ML VIAL IM ONE (19:45)
== END 2017-12-15 19:57 | disposition home or self-care (01) ==
LOC: PHEFT 19:02
DX: M54.12 Radiculopathy, cervical region (principal); I10 Essential (primary) hypertension; M32.9 Systemic lupus erythematosus, unspecified; J44.9 Chronic obstructive pulmonary disease, unspecified; K21.9 Gastro-esophageal reflux disease without esophagitis; E78.00 Pure hypercholesterolemia, unspecified; M19.90 Unspecified osteoarthritis, unspecified site; F41.9 Anxiety disorder, unspecified; F32.9 Major depressive disorder, single episode, unspecified
CPT/HCPCS: 96372; 99283; J1100

== ENCOUNTER 2017-12-22 21:10 | Emergency (ER) | payer SELFPAY ==
[2017-12-22] MEDS ORDERED: SODIUM CHLORIDE 0.9% FLUSH 10 ML FLUSH IVF (22:00)
[2017-12-22] MEDS: SODIUM CHLORID 0.9% 500 ML INJ 500 ML IV (22:00)
[2017-12-22 22:20] LABS: BILIRUBIN, URINE NEG (NEG); BLOOD, URINE NEG (NEG); GLUCOSE,URINE NEG (NEG); KETONE, URINE TRACE mg/dL (NEG); NITRITE,URINE NEG (NEG); URINE COLOR YELLOW (YELLW/STRAW); URINE LEUKOCYTE ESTERASE NEG (NEG)
[2017-12-22 22:25] LABS: AUTOMATED NEUTROPHIL # 7.2 TH/MM3 (1.8-7.7); BASOPHIL # 0.7 TH/MM3 (0-0.2); BASOPHIL % 4.8 % (0.0-2.0); EOSINOPHIL # 0.2 TH/MM3 (0-0.4); EOSINOPHIL % 1.6 % (0.0-4.0); HEMATOCRIT 36.2 % (35.0-46.0); HEMO FLAGS AUTO DIFF; HEMOGLOBIN 12.3 GM/DL (11.6-15.3); LYMPH % 40.7 % (9.0-44.0); LYMPHOCYTE # 6.2 TH/MM3 (1.0-4.8); MEAN CORPUSCULAR HEMOGLOBIN 27.8 PG (27.0-34.0); MEAN CORPUSCULAR HGB CONC 33.8 % (32.0-36.0); MEAN PLATELET VOLUME 8.7 FL (7.0-11.0); MONO % 7.4 % (0.0-8.0); MONOCYTE # 1.1 TH/MM3 (0-0.9); NEUT % 45.5 % (16.0-70.0); PLATELET COUNT 383 TH/MM3 (150-450); RED BLOOD COUNT 4.42 MIL/MM3 (4.00-5.30); RED CELL DISTRIBUTION WIDTH 17.2 % (11.6-17.2); WHITE BLOOD COUNT 15.4 TH/MM3 (4.0-11.0)
[2017-12-22 22:29] LABS: BACTERIA, URINE FEW /hpf; COMMENT (UR) CULT NOT INDICATED; CULTURE IF INDICATED CULT NOT INDICATED; RBC, URINE 0-2 /hpf (0-3); WBC, URINE 0-2 /hpf (0-5)
[2017-12-22 22:31] LABS: CHLORIDE 105 MEQ/L (98-107); POTASSIUM 3.8 MEQ/L (3.5-5.1); SODIUM (NA) 137 MEQ/L (136-145)
[2017-12-22 22:34] LABS: CALCIUM 8.3 MG/DL (8.5-10.1)
[2017-12-22 22:35] LABS: ALBUMIN 3.2 GM/DL (3.4-5.0); ANION GAP 6 MEQ/L (5-15); BICARBONATE 26.1 MEQ/L (21.0-32.0); BLOOD UREA NITROGEN 16 MG/DL (7-18); GLUCOSE,RANDOM 94 MG/DL (74-106)
[2017-12-22 22:37] LABS: APTT (PATIENT) 24.3 SEC (24.3-30.1); INTERNATIONAL NORMALIZED RATIO 0.9 RATIO; PROTHROMBIN TIME - PATIENT 9.4 SEC (9.8-11.6)
[2017-12-22 22:38] LABS: ALT (GPT) 15 U/L (10-53); AST (GOT) 9 U/L (15-37); CREATININE 0.94 MG/DL (0.50-1.00); GLOMERULAR FILTRATION RATE 64 ML/MIN (>89)
[2017-12-22 22:40] LABS: TOTAL BILIRUBIN ADULT 0.2 MG/DL (0.2-1.0); TOTAL PROTEIN 6.7 GM/DL (6.4-8.2)
[2017-12-22 22:41] LABS: ALKALINE PHOSPHATASE 60 U/L (45-117)
[2017-12-22 22:42] LABS: EOSINOPHILS 1 % (0-4); LYMPHOCYTES 40 % (9-44); MONOCYTES 6 % (0-8); NEUTROPHIL # MANUAL DIFF 8.2 TH/MM3 (1.8-7.7); POLYS (SEG NEUTROPHILS) 53 % (16-70); WBC DIFF SAMPLE 100
[2017-12-22 22:43] LABS: PLATELET ESTIMATE SMEAR NORMAL (NORMAL); PLATELET MORPHOLOGY NORMAL (NORMAL); SCAN/DIFF FINAL DIFF MANUAL; TROPONIN I LESS THAN 0.02 NG/ML (0.02-0.05)
== END 2017-12-22 23:08 | disposition home or self-care (01) ==
LOC: PHEFT 21:10
DX: R53.83 Other fatigue (principal); R00.2 Palpitations; R94.31 Abnormal electrocardiogram [ECG] [EKG]; M32.9 Systemic lupus erythematosus, unspecified; J44.9 Chronic obstructive pulmonary disease, unspecified; K21.9 Gastro-esophageal reflux disease without esophagitis; I10 Essential (primary) hypertension; E78.00 Pure hypercholesterolemia, unspecified; M19.90 Unspecified osteoarthritis, unspecified site
CPT/HCPCS: 71045; 80053; 81001; 84484; 84703; 85007; 85027; 85610; 85730; 93005; 96360; 99285-25

== ENCOUNTER 2018-01-16 03:59 | Observation (INO) | payer SELFPAY ==
[2018-01-16] VITALS (7 sets, daily range): BP systolic 116–153; BP diastolic 70–94; PULSE 67–81; RESP 16–18; TEMP 96.4–98.1; O2SAT 98–100
[~2018-01-16] VITALS: Ht 166.4 cm; Wt 78.1 kg
[~2018-01-16 03:59] MED LIST changes: -IBUP-232 PO
[2018-01-16] MEDS ORDERED: IOHEXOL 350 MG/ML 10 ML VIAL (for RAD DIAG) IVCONTRAST ONE (04:00)
--- NOTE | 2018-01-16 04:26 | PD ---
HPI Chief Complaint: Chest Pain Time Seen by Provider: 04:14 Travel History International Travel<30 days: No Contact w/Intl Traveler<30days: No Traveled to known affect area: No History of Present Illness HPI Patient presents to the emergency department complaining of chest pain begin approximately 4 hours prior to ER presentation the patient was watching TV. She took Pepcid and omeprazole but that did not help. Pain is described as being epigastric with radiation to the back, 8 out of 10, constant, no alleviating or aggravating factors, similar pain in the past but not this bad. Denies fever, chills, vomiting, recent travel, edema, but reports the nausea and some shortness of breath with the chest pain PFSH Past Medical History Hx Anticoagulant Therapy: No Arthritis: Yes Asthma: No Autoimmune Disease: Yes (Lupus) Blood Disorders: No Anxiety: Yes Depression: Yes Heart Rhythm Problems: No Cardiac Catheterization: No Cardiovascular Problems: Yes (SVT) High Cholesterol: Yes Chemotherapy: No Chest Pain: No Congestive Heart Failure: No COPD: Yes Cerebrovascular Accident: No Diabetes: No Diminished Hearing: No Diverticulitis: Yes Endocrine: No Gastrointestinal Disorders: Yes (GERD) GERD: Yes Glaucoma: No Genitourinary: Yes (Urethral sling) Headaches: Yes Hepatitis: No Hiatal Hernia: Yes Hypertension: Yes Immune Disorder: Yes (Lupus) Implanted Vascular Access Dvce: No Medical other: Yes (GERD) Musculoskeletal: Yes (arthritis) Neurologic: No Psychiatric: Yes Reproductive: Yes (CERVICAL DYSPLASIA: AGE 22) Respiratory: Yes (COPD) Immunizations Current: Yes Myocardial Infarction: No Radiation Therapy: No Seizures: No Sleep Apnea: No Thyroid Disease: No Ulcer: No Tetanus Vaccination: < 5 Years Influenza Vaccination: Yes PNEUMOCCOCAL Vaccine (Year): 1 ?: Not : 4 Para: 2 Miscarriage: 2 Dilation and Curettage (D&C): Yes Tubal Ligation: Yes Past Surgical History Abdominal Surgery: No AICD: No Appendectomy: Yes Body Medical Devices: MESH Cardiac Surgery: Yes (ABLATION 2002 FOR SVT) Section: Yes (2) Coronary Artery Bypass Graft: No Ear Surgery: No Endocrine Surgery: No Eye Surgery: No Genitourinary Surgery: Yes (URINARY SLING/MESH 2008) Gynecologic Surgery: No Hysterectomy: No Joint Replacement: No Neurologic Surgery: No Oral Surgery: No Pacemaker: No Thoracic Surgery: No Other Surgery: Yes Social History Alcohol Use: No Tobacco Use: Yes (3/4 PPD) Substance Use: No Allergies-Medications (Allergen,Severity, Reaction): Coded Allergies: Sulfa (Sulfonamide Antibiotics) (Verified Allergy, Intermediate, Hives, 12/22/17) chlorhexidine (Verified Allergy, Mild, HIVES, 12/22/17) iodine (Verified Allergy, Mild, HIVES, 12/22/17) not contrast only topical potassium iodide (Verified Allergy, Mild, HIVES, 12/22/17) not contrast only topical povidone-iodine (Verified Allergy, Mild, HIVES, 12/22/17) not contrast only topical sodium iodide (Verified Allergy, Mild, HIVES, 12/22/17) not contrast only topical sodium iodide (Verified Allergy, Mild, HIVES, 12/22/17) not contrast only topical Reported Meds & Prescriptions Reported Meds & Active Scripts Active Propranolol (Propranolol HCl) 40 Mg Tab 40 Mg PO TID Reported Omeprazole 20 Mg Tab 20 Mg PO DAILY Review of Systems Except as stated in HPI: all other systems reviewed are Neg Physical Exam Narrative GENERAL: No acute distress. SKIN: Focused skin assessment warm/dry. HEAD: Atraumatic. Normocephalic. EYES: Pupils equal and round. No scleral icterus. No injection or drainage. ENT: No nasal bleeding or discharge. Mucous membranes pink and moist. NECK: Trachea midline. No JVD. CARDIOVASCULAR: Regular rate and rhythm. No murmur appreciated. RESPIRATORY: No accessory muscle use. Clear to auscultation. Breath sounds equal bilaterally. GASTROINTESTINAL: Abdomen soft, non-tender, nondistended. Hepatic and splenic margins not palpable. MUSCULOSKELETAL: No obvious deformities. No clubbing. No cyanosis. No edema. NEUROLOGICAL: Awake and alert. No obvious cranial nerve deficits. Motor grossly within normal limits. Normal speech. PSYCHIATRIC: Appropriate mood and affect; insight and judgment normal. Data Data Last Documented VS Vital Signs Date Time Temp Pulse Resp B/P (MAP) Pulse Ox O2 Delivery O2 Flow Rate FiO2 01/16/18 07:33 75 18 121/83 (96) 100 Room Air 01/16/18 04:13 98.1 Orders Orders Electrocardiogram (01/16/18 04:23) B-Type Natriuretic Peptide (01/16/18 04:23) Ckmb (Isoenzyme) Profile (01/16/18 04:23) Complete Blood Count With Diff (01/16/18 04:23) Comprehensive Metabolic Panel (01/16/18 04:23) Magnesium (Mg) (01/16/18 04:23) Prothrombin Time / Inr (Pt) (01/16/18 04:23) Act Partial Throm Time (Ptt) (01/16/18 04:23) Troponin I (01/16/18 04:23) Chest, Single Ap (01/16/18 04:23) Ecg Monitoring (01/16/18 04:23) Iv Access Insert/Monitor (01/16/18 04:23) Oximetry (01/16/18 04:23) Aspirin (Aspirin) (01/16/18 04:30) Sodium Chloride 0.9% Flush (Ns Flush) (01/16/18 04:30) Pantoprazole Inj (Protonix Inj) (01/16/18 04:30) Lipase (01/16/18 04:26) CKMB (01/16/18 04:27) CKMB% (01/16/18 04:27) Potassium Chloride (Kcl) (01/16/18 05:30) Sodium Chlor 0.9% 1000 Ml Inj (Ns 1000 M (01/16/18 05:30) Morphine Inj (Morphine Inj) (01/16/18 05:30) Ct Abd/Pel W Iv Contrast(Rout) (01/16/18 05:32) Ed Urine Pregnancytest Poc (01/16/18 05:34) Iohexol 350 Inj (Omnipaque 350 Inj) (01/16/18 04:00) Us Abdomen Gallbladder (01/16/18 07:15) Place In Observation (01/16/18 ) Vital Signs (Adult) Q4H (01/16/18 07:35) Activity Oob Ad Esmer (01/16/18 07:35) Intake + Output KRISTIE.QSHIFT (01/16/18 07:35) Diet Npo (01/16/18 Breakfast) Sodium Chloride 0.9% Flush (Ns Flush) (01/16/18 07:45) Sodium Chloride 0.9% Flush (Ns Flush) (01/16/18 09:00) Piperacil-Tazo 4.5 Gm Premix (Zosyn 4.5 (01/16/18 08:00) Diphenhydramine Inj (Benadryl Inj) (01/16/18 07:45) Acetaminophen (Tylenol) (01/16/18 07:45) Morphine Inj (Morphine Inj) (01/16/18 07:45) Consult General Surgery (01/16/18 ) Biliary Quantitative (Hida) (01/16/18 ) Admit Order (Ed Use Only) (01/16/18 07:46) Labs Laboratory Tests Test 01/16/18 04:27 White Blood Count 10.2 TH/MM3 Red Blood Count 4.29 MIL/MM3 Hemoglobin 11.6 GM/DL Hematocrit 34.9 % Mean Corpuscular Volume 81.3 FL Mean Corpuscular Hemoglobin 27.0 PG Mean Corpuscular Hemoglobin Concent 33.2 % Red Cell Distribution Width 16.7 % Platelet Count 355 TH/MM3 Mean Platelet Volume 8.9 FL Neutrophils (%) (Auto) 58.8 % Lymphocytes (%) (Auto) 32.6 % Monocytes (%) (Auto) 5.7 % Eosinophils (%) (Auto) 1.3 % Basophils (%) (Auto) 1.6 % Neutrophils # (Auto) 6.0 TH/MM3 Lymphocytes # (Auto) 3.3 TH/MM3 Monocytes # (Auto) 0.6 TH/MM3 Eosinophils # (Auto) 0.1 TH/MM3 Basophils # (Auto) 0.2 TH/MM3 CBC Comment DIFF FINAL Differential Comment Prothrombin Time 10.2 SEC Prothromb Time International Ratio 1.0 RATIO Activated Partial Thromboplast Time 28.7 SEC Blood Urea Nitrogen 14 MG/DL Creatinine 0.90 MG/DL Random Glucose 89 MG/DL Total Protein 7.5 GM/DL Albumin 3.8 GM/DL Calcium Level 8.7 MG/DL Magnesium Level 2.0 MG/DL Alkaline Phosphatase 81 U/L Aspartate Amino Transf (AST/SGOT) 19 U/L Alanine Aminotransferase (ALT/SGPT) 21 U/L Total Bilirubin 0.6 MG/DL Sodium Level 137 MEQ/L Potassium Level 3.2 MEQ/L Chloride Level 100 MEQ/L Carbon Dioxide Level 28.3 MEQ/L Anion Gap 9 MEQ/L Estimat Glomerular Filtration Rate 67 ML/MIN Total Creatine Kinase 101 U/L Creatine Kinase MB 0.8 NG/ML Troponin I LESS THAN 0.02 NG/ML B-Type Natriuretic Peptide 18 PG/ML Lipase 122 U/L MDM Medical Decision Making Medical Screen Exam Complete: Yes Emergency Medical Condition: Yes Interpretation(s) ECG: Sinus rhythm, rate 85, normal axis, normal intervals, QTC 395, T-wave inversion in lead V1 and V2 Labs: Decreased potassium Last Impressions Abdomen/Pelvis CT 01/16/18 0532 Signed Impressions: CONCLUSION: 1. Distended gallbladder with a thickened gallbladder wall. This could represe nt cholecystitis. Calcified gallstones are not seen. Noncalcified gallstones wo uld not be visible on the CT examination. 2. Mild hepatic steatosis. Chest X-Ray 01/16/18 0423 Signed Impressions: CONCLUSION: No acute cardiopulmonary process. Differential Diagnosis Musculoskeletal chest pain, peptic ulcer disease, gastritis, ACS, PE, pancreatitis, aortic dissection, cholecystitis Narrative Course Patient presents to the emergency department complaining of chest pain placed on director of cardiac cath lab, IV access obtained, and labs, EKG, chest x-ray, IV Protonix 40 mg, aspirin 325 mg p.o. ordered. 0527: Patient plan of epigastric pain going to her back. EKG and cardiac lab are unremarkable. Complete patient's potassium as she denies an allergy to potassium, and will give IV fluids and IV pain medication. 0716: CT scan resulted, concern for cholecystitis. Will be admitted, ultrasound ordered as well as Levaquin 750 mg IV. Admit team will follow ultrasound results. Diagnosis Primary Impression: Cholecystitis Admitting Information Admitting Physician Requests: Admit Condition: Stable Ananya Blanco MD Jan 16, 2018 04:26
[2018-01-16] MEDS ORDERED: PANTOPRAZOLE SODIUM 40 MG VIAL IV PUSH ONE (04:30)
[2018-01-16] MEDS ORDERED: ASPIRIN 325 MG TAB PO ONE (04:30)
[2018-01-16] MEDS ORDERED: SODIUM CHLORIDE 0.9% FLUSH 10 ML FLUSH IVF PRN (04:30)
[2018-01-16 05:04] LABS: CHLORIDE 100 MEQ/L (98-107); SODIUM (NA) 137 MEQ/L (136-145)
[2018-01-16 05:07] LABS: ALBUMIN 3.8 GM/DL (3.4-5.0); BLOOD UREA NITROGEN 14 MG/DL (7-18); CALCIUM 8.7 MG/DL (8.5-10.1); GLUCOSE,RANDOM 89 MG/DL (74-106)
[2018-01-16 05:08] LABS: BASOPHIL # 0.2 TH/MM3 (0-0.2); BASOPHIL % 1.6 % (0.0-2.0); BICARBONATE 28.3 MEQ/L (21.0-32.0); EOSINOPHIL # 0.1 TH/MM3 (0-0.4); EOSINOPHIL % 1.3 % (0.0-4.0); HEMATOCRIT 34.9 % (35.0-46.0); HEMOGLOBIN 11.6 GM/DL (11.6-15.3); LYMPH % 32.6 % (9.0-44.0); LYMPHOCYTE # 3.3 TH/MM3 (1.0-4.8); MEAN CELL VOLUME 81.3 FL (80.0-100.0); MEAN CORPUSCULAR HGB CONC 33.2 % (32.0-36.0); MEAN PLATELET VOLUME 8.9 FL (7.0-11.0); MONO % 5.7 % (0.0-8.0); MONOCYTE # 0.6 TH/MM3 (0-0.9); NEUT % 58.8 % (16.0-70.0); PLATELET COUNT 355 TH/MM3 (150-450); PROTHROMBIN TIME - PATIENT 10.2 SEC (9.8-11.6); RED BLOOD COUNT 4.29 MIL/MM3 (4.00-5.30); RED CELL DISTRIBUTION WIDTH 16.7 % (11.6-17.2); WHITE BLOOD COUNT 10.2 TH/MM3 (4.0-11.0)
[2018-01-16 05:10] LABS: ALT (GPT) 21 U/L (10-53); AST (GOT) 19 U/L (15-37); GLOMERULAR FILTRATION RATE 67 ML/MIN (>89)
--- NOTE | 2018-01-16 05:10 | RADRPT ---
EXAM DATE: 01/16/2018 5:00 AM EDT AGE/SEX: 47 years / Female INDICATIONS: Chest pain. CLINICAL DATA: This is the patient's initial encounter. Patient reports that signs and symptoms have been present for 1 day and indicates a pain score of 8/10. MEDICAL/SURGICAL HISTORY: . Hypertension. Chronic obstructive pulmonary disease. Gastroesophage al reflux disease. SVT. . Ablation. COMPARISON: [facility], CHEST SINGLE AP, 12/22/2017. . FINDINGS: A single AP view of the chest demonstrates the lungs to be symmetrically aerated without evidence of mass, infiltrate or effusion. The cardiomediastinal contours are unremarkable. Osseous structures a re intact. CONCLUSION: No acute cardiopulmonary process. Electronically signed by: Stepan Mckenna MD 01/16/2018 5:09 AM EDT
[2018-01-16 05:12] LABS: TOTAL BILIRUBIN ADULT 0.6 MG/DL (0.2-1.0); TOTAL PROTEIN 7.5 GM/DL (6.4-8.2)
[2018-01-16 05:13] LABS: ALKALINE PHOSPHATASE 81 U/L (45-117)
[2018-01-16 05:15] LABS: TROPONIN I LESS THAN 0.02 NG/ML (0.02-0.05)
[2018-01-16] MEDS ORDERED: SODIUM CHLOR 0.9% 1000 ML INJ 1,000 ML IV ONE (05:30)
[2018-01-16] MEDS ORDERED: MORPHINE SULFATE 2 MG/ML SYRINGE IV PUSH ONE (05:30)
[2018-01-16] MEDS ORDERED: POTASSIUM CHLORIDE 10 MEQ CONTROLLED RELEASE TAB PO ONE (05:30)
--- NOTE | 2018-01-16 06:35 | RADRPT ---
EXAM DATE: 01/16/2018 6:19 AM EDT AGE/SEX: 47 years / Female INDICATIONS: Epigastric pain CLINICAL DATA: This is the patient's initial encounter. Patient reports that signs and symptoms have been present for 1 day and indicates a pain score of 8/10. MEDICAL/SURGICAL HISTORY: Cardiovascular disease. Lupus. Hiatal hernia. Hypertension, copd Appendectomy. Tubal ligation. Urinary sling mesh ORAL CONTRAST: No oral contrast ingested. RADIATION DOSE: 11.23 CTDI (mGy) COMPARISON: [facility] [place], CT ABDOMEN & PELVIS W CONTRAST, 01/19/2016. . TECHNIQUE: Multiple contiguous axial images were obtained through the abdomen and pelvis following b olus infusion of 71 ml Omnipaque 350 (iohexol) nonionic water-soluble contrast as a single exam dos e. No oral contrast ingested. Using automated exposure control and adjustment of the mA and/or kV ac cording to patient size, the radiation dose was kept as low as reasonably achievable to obtain optima l diagnostic quality images. FINDINGS: Lower Lungs: The visualized lower lungs are clear. Liver: There is diffuse mild low density seen throughout the liver. No focal hepatic lesions are seen . The gallbladder is distended. The gallbladder wall appears thickened. Calcified gallstones are not seen. Spleen: Homogeneous density without enlargement. Pancreas: Unremarkable without mass or calcification. Kidneys: Normal in size and shape. No evidence of mass or hydronephrosis. Adrenal Glands: Unremarkable. Aorta: There are scattered atherosclerotic calcifications seen in the arterial system. No aneurysm is seen. Bowel/Mesentery: The bowel loops are grossly unremarkable. The cecum and sigmoid colon have a normal configuration. Abdominal Wall: Intact. Retroperitoneum: No evidence of adenopathy in the retrocrural, para-aortic, or deep pelvic regions. Bladder: Contours are smooth. Reproductive Organs: No abnormal masses or calcifications seen. Inguinal: The inguinal region is unremarkable without evidence of adenopathy. Bony Structures: Unremarkable. CONCLUSION: 1. Distended gallbladder with a thickened gallbladder wall. This could represent cholecystitis. Calc ified gallstones are not seen. Noncalcified gallstones would not be visible on the CT examination. 2. Mild hepatic steatosis. Electronically signed by: Stepan Mckenna MD 01/16/2018 6:34 AM EDT
[2018-01-16] MEDS ORDERED: MORPHINE SULFATE 4 MG/ML INJ IV PUSH PRN (07:45)
[2018-01-16] MEDS ORDERED: ACETAMINOPHEN 325 MG TAB PO PRN (07:45)
[2018-01-16] MEDS ORDERED: diphenhydrAMINE HCL 50 MG/ML VIAL IV PUSH PRN (07:45)
[2018-01-16] MEDS ORDERED: SODIUM CHLORIDE 0.9% FLUSH 10 ML FLUSH IV FLUSH PRN (07:45)
[2018-01-16] MEDS: PIPERACIL-TAZO 4.5 GM PREMIX 100 ML IV SCH ×2 (07:59→14:00)
[2018-01-16] MEDS ORDERED: SODIUM CHLORIDE 0.9% FLUSH 10 ML FLUSH IV FLUSH SCH (09:00)
--- NOTE | 2018-01-16 09:25 | HHI.HP ---
[facility] Primary [facility] Physician No Primary Care Physician Admission Diagnosis cholecystitis, chest pain Diagnoses: (1) Chest pain (2) Abdominal pain Chief Complaint: Abdominal pain Travel History International Travel<30 Days: No Contact w/Intl Traveler <30 Da: No Traveled to Known Affected Are: No History of Present Illness This is a pleasant 47-year-old female patient with a known medical history of lupus, anxiety depression, hyperlipidemia and COPD and GERD who presented to the ED with complaints of indigestion. Patient states that around midnight last evening she was feeling burning in her midepigastric area and esophagus, she related to her history of GERD and indigestion she attempted to take Pepcid and omeprazole with no relief. She states that around 3 AM the pain worsened and radiated to the back side as well as her chest area. She does admit to associated nausea with no vomiting. She does state that she has had this type of pain before but the severity is worse this time around. She states that the pain is an 8 out of 10 at its worst on pain scale, has improved with the use of pain medicine in the hospital. Denies any recent fevers, chills, headache, shortness of breath, diarrhea, black or bloody stools. Patient does admit to undergoing an EGD 5 years ago [place]. She does have a hiatal hernia. It should be noted that patient has a history of SVT, underwent an ablation in 2002 and since then has been stable. Patient does not follow with primary care doctor due to insurance reasons, patient was supposed to start a new job this week with dissipation of getting insurance coverage. Patient has had lupus for quite some time, was prescribed Plaquenil but since she has not had a PCP or insurance she has not been taking this medicine. She does take omeprazole daily as well as propanolol. Does admit to daily tobacco abuse denies any alcohol use. Review of Systems Constitutional: COMPLAINS OF: Fatigue, DENIES: Fever, Chills Eyes: DENIES: Diplopia Respiratory: DENIES: Cough, Sputum production, Shortness of breath Cardiovascular: COMPLAINS OF: Chest pain, DENIES: Palpitations Gastrointestinal: COMPLAINS OF: Abdominal pain, Nausea, DENIES: Black stools, Bloody stools, Constipation, Diarrhea, Vomiting Musculoskeletal: DENIES: Joint pain Hematologic/lymphatic: DENIES: Bruising Immunologic/allergic: DENIES: Eczema Neurologic: DENIES: Abnormal gait Psychiatric: COMPLAINS OF: Anxiety Except as stated in HPI: all other systems reviewed are Neg Past Family Social History Past Medical History Arthritis Anxiety depression History of SVT with ablation 2002 Hyperlipidemia COPD GERD Lupus Hiatal hernia Hypertension Past Surgical History Bladder sling and mesh Ablation 2002 for SVT Appendectomy Unspecified right hand surgery Reported Medications Active Propranolol (Propranolol HCl) 40 Mg Tab 40 Mg PO TID Reported Omeprazole 20 Mg Tab 20 Mg PO DAILY Allergies: Coded Allergies: Sulfa (Sulfonamide Antibiotics) (Verified Allergy, Intermediate, Hives, 12/22/17) chlorhexidine (Verified Allergy, Mild, HIVES, 12/22/17) iodine (Verified Allergy, Mild, HIVES, 12/22/17) not contrast only topical potassium iodide (Verified Allergy, Mild, HIVES, 12/22/17) not contrast only topical povidone-iodine (Verified Allergy, Mild, HIVES, 12/22/17) not contrast only topical sodium iodide (Verified Allergy, Mild, HIVES, 12/22/17) not contrast only topical sodium iodide (Verified Allergy, Mild, HIVES, 12/22/17) not contrast only topical Active Ordered Medications Current Medications Medications (Trade) Dose Ordered Sig/Mitali Route Start Time Stop Time Status Last Admin (NS Flush) 2 ml UNSCH PRN IVF 01/16/18 04:30 (NS Flush) 2 ml UNSCH PRN IV FLUSH 01/16/18 07:45 (NS Flush) 2 ml BID IV FLUSH 01/16/18 09:00 01/16/18 09:38 Piperacillin Sod/ Tazobactam Sod 100 ml @ 200 mls/hr Q6H IV 01/16/18 08:00 01/16/18 07:59 (Benadryl Inj) 25 mg Q6H PRN IV PUSH 01/16/18 07:45 (Tylenol) 650 mg Q6H PRN PO 01/16/18 07:45 (Morphine Inj) 2 mg Q2H PRN IV PUSH 01/16/18 07:45 (Zofran Inj) 4 mg Q6HR PRN IV PUSH 01/16/18 10:00 01/16/18 11:20 (Habitrol 14 Mg Patch.24 Hr) 1 patch DAILY T-DERMAL 01/16/18 11:00 01/16/18 11:19 Miscellaneous Information 1 HS T-DERMAL 01/16/18 21:00 Family History Paternal medical history significant for stroke. Mother had diabetes. Social History Patient admits to smoking three fourths of pack of cigarettes per day since her teen years. Denies any alcohol or illicit drug use. Physical Exam Vital Signs Vital Signs Date Time Temp Pulse Resp B/P (MAP) Pulse Ox O2 Delivery O2 Flow Rate FiO2 01/16/18 08:27 01/16/18 07:33 75 18 121/83 (96) 100 Room Air 01/16/18 04:26 18 98 Room Air 01/16/18 04:16 81 16 98 Room Air 01/16/18 04:13 98.1 81 18 138/94 (109) 98 153/89 (110) Physical Exam GENERAL: Well-developed, well-nourished patient in NAD. SKIN: Warm and dry. No rash. HEAD: Normocephalic. Atraumatic. EYES: Pupils equal and round. No scleral icterus. No injection or drainage. ENT: No nasal bleeding or discharge. Mucous membranes pink and moist. NECK: Supple. Trachea midline. CARDIOVASCULAR: Regular rate and rhythm. S1, S2 noted. No murmur appreciated. RESPIRATORY: No accessory muscle use. Clear to auscultation. Breath sounds equal bilaterally. GASTROINTESTINAL: Abdomen soft, non-tender, nondistended. Normoactive bowel sounds x4. MUSCULOSKELETAL: No obvious deformities. Extremities without clubbing, cyanosis , or edema. NEUROLOGICAL: Awake and alert. No obvious cranial nerve deficits. Motor grossly within normal limits. 5/5 muscle strength in bilateral upper and lower extremities. Normal speech. PSYCHIATRIC: Appropriate mood and affect; insight and judgment normal. Laboratory Laboratory Tests Test 01/16/18 04:27 White Blood Count 10.2 Red Blood Count 4.29 Hemoglobin 11.6 Hematocrit 34.9 Mean Corpuscular Volume 81.3 Mean Corpuscular Hemoglobin 27.0 Mean Corpuscular Hemoglobin Concent 33.2 Red Cell Distribution Width 16.7 Platelet Count 355 Mean Platelet Volume 8.9 Neutrophils (%) (Auto) 58.8 Lymphocytes (%) (Auto) 32.6 Monocytes (%) (Auto) 5.7 Eosinophils (%) (Auto) 1.3 Basophils (%) (Auto) 1.6 Neutrophils # (Auto) 6.0 Lymphocytes # (Auto) 3.3 Monocytes # (Auto) 0.6 Eosinophils # (Auto) 0.1 Basophils # (Auto) 0.2 CBC Comment DIFF FINAL Differential Comment Prothrombin Time 10.2 Prothromb Time International Ratio 1.0 Activated Partial Thromboplast Time 28.7 Blood Urea Nitrogen 14 Creatinine 0.90 Random Glucose 89 Total Protein 7.5 Albumin 3.8 Calcium Level 8.7 Magnesium Level 2.0 Alkaline Phosphatase 81 Aspartate Amino Transf (AST/SGOT) 19 Alanine Aminotransferase (ALT/SGPT) 21 Total Bilirubin 0.6 Sodium Level 137 Potassium Level 3.2 Chloride Level 100 Carbon Dioxide Level 28.3 Anion Gap 9 Estimat Glomerular Filtration Rate 67 Total Creatine Kinase 101 Creatine Kinase MB 0.8 Troponin I LESS THAN 0.02 B-Type Natriuretic Peptide 18 Lipase 122 Result Diagram: 01/16/1842601/16/18426 Imaging Last Impressions Gall Bladder Ultrasound 01/16/18 0715 Signed Impressions: CONCLUSION: 1. Abnormal gallbladder wall thickening with adjacent trace pericholecystic fl uid. No stones are identified within the lumen and no stones identified within the common bile duct. Given the patient's right upper quadrant pain concern is for a calculus cholecystitis. Abdomen/Pelvis CT 01/16/18 0587 Signed Impressions: CONCLUSION: 1. Distended gallbladder with a thickened gallbladder wall. This could represe nt cholecystitis. Calcified gallstones are not seen. Noncalcified gallstones wo uld not be visible on the CT examination. 2. Mild hepatic steatosis. Chest X-Ray 01/16/18 362 Signed Impressions: CONCLUSION: No acute cardiopulmonary process. Septic Shock Reassessment Septic shock perfusion: reassessment completed Caprini VTE Risk Assessment Caprini VTE Risk Assessment: No/Low Risk (score <= 1) Caprini Risk Assessment Model Point Value = 1 Point Value = 2 Point Value = 3 Point Value = 5 Age 41-60 Minor surgery BMI > 25 kg/m2 Swollen legs Varicose veins or History of unexplained or recurrent spontaneous Oral contraceptives or hormone replacement Sepsis (< 1 month) Serious lung disease, including pneumonia (< 1 month) Abnormal pulmonary function Acute myocardial infarction Congestive heart failure (< 1 month) History of inflammatory bowel disease Medical patient at bed rest Age 61-74 Arthroscopic surgery Major open surgery (> 45 min) Laparoscopic surgery (> 45 min) Malignancy Confined to bed (> 72 hours) Immobilizing plaster cast Central venous access Age >= 75 History of VTE Family history of VTE Factor V Leiden Prothrombin [id number] Lupus anticoagulant Anticardiolipin antibodies Elevated serum homocysteine Heparin-induced thrombocytopenia Other congenital or acquired thrombophilia Stroke (< 1 month) Elective arthroplasty Hip, pelvis, or leg fracture Acute spinal cord injury (< 1 month) Prophylaxis Regimen Total Risk Factor Score Risk Level Prophylaxis Regimen 0-1 Low Early ambulation 2 Moderate Order ONE of the following: *Sequential Compression Device (SCD) *Heparin 5000 units SQ BID 3-4 Higher Order ONE of the following medications: *Heparin 5000 units SQ TID *Enoxaparin/Lovenox 40 mg SQ daily (WT < 150 kg, CrCl > 30 mL/min) *Enoxaparin/Lovenox 30 mg SQ daily (WT < 150 kg, CrCl > 10-29 mL/min) *Enoxaparin/Lovenox 30 mg SQ BID (WT < 150 kg, CrCl > 30 mL/min) AND/OR *Sequential Compression Device (SCD) 5 or more Highest Order ONE of the following medications: *Heparin 5000 units SQ TID (Preferred with Epidurals) *Enoxaparin/Lovenox 40 mg SQ daily (WT < 150 kg, CrCl > 30 mL/min) *Enoxaparin/Lovenox 30 mg SQ daily (WT < 150 kg, CrCl > 10-29 mL/min) *Enoxaparin/Lovenox 30 mg SQ BID (WT < 150 kg, CrCl > 30 mL/min) AND *Sequential Compression Device (SCD) Assessment and Plan Problem List: (1) Cholecystitis ICD Code: K81.9 - Cholecystitis, unspecified Status: Acute Assessment and Plan This is a pleasant 47-year-old female patient with a known medical history of lupus, anxiety depression, hyperlipidemia and COPD and GERD who presented to the ED with complaints of indigestion. Patient states that around midnight last evening she was feeling burning in her midepigastric area and esophagus, she related to her history of GERD and indigestion she attempted to take Pepcid and omeprazole with no relief. Acute cholecystitis - Abdominal/pelvis CT showing distended gallbladder with a thickened gallbladder wall. Gallbladder ultrasound showing wall thickening with trace pericholecystic fluid. No stones. - General surgery consulted, appreciate input and recommendations. Patient to undergo a cholecystectomy today. Keep n.p.o. for now. - Patient started on Zosyn IV. Will continue. Culture for infection, this time no leukocytosis or fever. CBC essentially unremarkable. Chest x-ray negative. - Zofran available for nausea. Morphine IV for pain control. - Supportive care. Hypokalemia: Potassium 3.2. Status post replacement. Continue to follow BMP. Tobacco abuse: Encouraged cessation. Nicotine patch. DVT prophylaxis: SCDs. Problem Qualifiers (1) Chest pain: Qualified Codes: R07.9 - Chest pain, unspecified Tammie Steward Jan 16, 2018 09:25
--- NOTE | 2018-01-16 09:32 | RADRPT ---
EXAM DATE: 01/16/2018 9:18 AM EDT AGE/SEX: 47 years / Female INDICATIONS: Right upper quadrant pain; gallstones. CLINICAL DATA: This is the patient's initial encounter. Patient reports that signs and/or symptoms h ave been present for 1 day and indicates a pain score of 3/10. MEDICAL/SURGICAL HISTORY: Non-responsive. Hypertension. GERD. COPD. Hiatal hernia. Lupus. Appe ndectomy. Tubal ligation. section. Cardiac ablation. D&C. COMPARISON: [facility], CT ABDOMEN & PELVIS W CONTRAST, 01/16/2018. MEASUREMENTS (cm x cm x cm): Liver:__ 14.1 cm length Common Bile Duct:__ 5mm FINDINGS: Liver: Normal echotexture without focal lesion or ductal dilatation. Portal Vein: Hepatofugal flow seen in portal vein. Common Duct: No intraluminal mass or stone visualized. Gallbladder: The gallbladder is distended with mild circumferential wall thickening measuring 5 mm. Trace adjacent pericholecystic fluid. No stones are identified within the lumen. Pancreas: Not well visualized. Right Kidney: No mass or hydronephrosis Other: None. CONCLUSION: 1. Abnormal gallbladder wall thickening with adjacent trace pericholecystic fluid. No stones are agnes ntified within the lumen and no stones identified within the common bile duct. Given the patient's ri ght upper quadrant pain concern is for a calculus cholecystitis. Electronically signed by: Darlene Rees MD 01/16/2018 9:31 AM EDT
[2018-01-16] MEDS ORDERED: ONDANSETRON HCL 4 MG/2 ML VIAL IV PUSH PRN (10:00)
[2018-01-16] MEDS ORDERED: NICOTINE 14 MG/24 HR PATCH T-DERMAL SCH (11:00)
[2018-01-16] MEDS ORDERED: SODIUM CHLOR 0.9% 1000 ML INJ 1,000 ML IV SCH (12:00)
[2018-01-16] MEDS ORDERED: fentaNYL CITRATE 250 MCG/5 ML AMP ONE (12:04)
[2018-01-16] MEDS ORDERED: MIDAZOLAM HCL 2 MG/2 ML VIAL ONE (12:05)
[2018-01-16] MEDS ORDERED: SUGAMMADEX SODIUM 200 MG/2 ML VIAL IV PUSH ONE (12:05)
[2018-01-16] MEDS ORDERED: BUPIVACAINE HCL PF 0.5% 10 ML VIAL ONE (12:13)
[2018-01-16] MEDS ORDERED: LIDOCAINE 1%/EPINEPHrine 1:100,000 SOLN 20 ML VIAL ONE (12:15)
[2018-01-16] MEDS ORDERED: BUPIVACAINE/EPINEPHRINE 0.75% PF 30 ML VIAL ONE (12:16)
--- NOTE | 2018-01-16 12:37 | PD.CONS ---
HPI Service General Surgery Consult Requested By Dr. Monet Reason for Consult Acute cholecystitis Primary Care Physician No Primary Care Physician History of Present Illness Patient is a 47-year-old female with a history of reflux who presented last night with an epigastric pain similar to her reflux but much more severe and also radiating to the back. Labs are normal. CT abdomen and pelvis showed distended gallbladder. Ultrasound was performed revealing gallbladder wall thickening and trace pericholecystic fluid. There are not any stones identified on this exam. Past surgical history includes appendectomy. Review of Systems Constitutional: DENIES: Fever, Chills Eyes: DENIES: Eye inflammation, Eye pain Ears, nose, mouth, throat: DENIES: Oral lesions, Throat pain Respiratory: DENIES: Sputum production, Shortness of breath Cardiovascular: DENIES: Chest pain, Palpitations Gastrointestinal: COMPLAINS OF: Abdominal pain, Nausea Integumentary: DENIES: Rash Neurologic: DENIES: Paresthesias, Seizures Past Family Social History Past Medical History Arthritis Anxiety depression History of SVT with ablation 2002 Hyperlipidemia COPD GERD Lupus Hiatal hernia Hypertension Past Surgical History Bladder sling and mesh Ablation 2002 for SVT Appendectomy Unspecified right hand surgery Reported Medications Reported Meds & Active Scripts Active Propranolol (Propranolol HCl) 40 Mg Tab 40 Mg PO TID Reported Omeprazole 20 Mg Tab 20 Mg PO DAILY Allergies: Coded Allergies: Sulfa (Sulfonamide Antibiotics) (Verified Allergy, Intermediate, Hives, 12/22/17) chlorhexidine (Verified Allergy, Mild, HIVES, 12/22/17) iodine (Verified Allergy, Mild, HIVES, 12/22/17) not contrast only topical potassium iodide (Verified Allergy, Mild, HIVES, 12/22/17) not contrast only topical povidone-iodine (Verified Allergy, Mild, HIVES, 12/22/17) not contrast only topical sodium iodide (Verified Allergy, Mild, HIVES, 12/22/17) not contrast only topical sodium iodide (Verified Allergy, Mild, HIVES, 12/22/17) not contrast only topical Active Ordered Medications Current Medications Medications (Trade) Dose Ordered Sig/Mitali Route Start Time Stop Time Status Last Admin (NS Flush) 2 ml UNSCH PRN IVF 01/16/18 04:30 (NS Flush) 2 ml UNSCH PRN IV FLUSH 01/16/18 07:45 (NS Flush) 2 ml BID IV FLUSH 01/16/18 09:00 01/16/18 09:38 Piperacillin Sod/ Tazobactam Sod 100 ml @ 200 mls/hr Q6H IV 01/16/18 08:00 01/16/18 07:59 (Benadryl Inj) 25 mg Q6H PRN IV PUSH 01/16/18 07:45 (Tylenol) 650 mg Q6H PRN PO 01/16/18 07:45 (Morphine Inj) 2 mg Q2H PRN IV PUSH 01/16/18 07:45 (Zofran Inj) 4 mg Q6HR PRN IV PUSH 01/16/18 10:00 01/16/18 11:20 (Habitrol 14 Mg Patch.24 Hr) 1 patch DAILY T-DERMAL 01/16/18 11:00 01/16/18 11:19 Miscellaneous Information 1 HS T-DERMAL 01/16/18 21:00 Sodium Chloride 1,000 ml @ 84 mls/hr [id number] IV 01/16/18 12:00 Family History Noncontributory Social History No alcohol or drug use. Smokes 3/4 ppd. Physical Exam Vital Signs Vital Signs Date Time Temp Pulse Resp B/P (MAP) Pulse Ox O2 Delivery O2 Flow Rate FiO2 01/16/18 09:00 96.4 67 17 116/70 (85) 99 01/16/18 08:27 01/16/18 07:33 75 18 121/83 (96) 100 Room Air 01/16/18 04:26 18 98 Room Air 01/16/18 04:16 81 16 98 Room Air 01/16/18 04:13 98.1 81 18 138/94 (109) 98 153/89 (110) Physical Exam GENERAL: Awake and alert. No acute distress. Cooperative. HEAD: Normocephalic. Atraumatic. EYES: Pupils equal round and reactive to light bilaterally. No scleral icterus. ENT: Moist oral mucosa. NECK: Trachea midline. CHEST: Nonlabored breathing. No respiratory distress. CARDIOVASCULAR: Regular rate and rhythm. ABDOMEN: Soft. Moderate tenderness to palpation in the right upper abdomen. EXTREMITIES: No cyanosis or edema. SKIN: Warm, dry, nonjaundiced. Laboratory Laboratory Tests Test 01/16/18 04:27 White Blood Count 10.2 Red Blood Count 4.29 Hemoglobin 11.6 Hematocrit 34.9 Mean Corpuscular Volume 81.3 Mean Corpuscular Hemoglobin 27.0 Mean Corpuscular Hemoglobin Concent 33.2 Red Cell Distribution Width 16.7 Platelet Count 355 Mean Platelet Volume 8.9 Neutrophils (%) (Auto) 58.8 Lymphocytes (%) (Auto) 32.6 Monocytes (%) (Auto) 5.7 Eosinophils (%) (Auto) 1.3 Basophils (%) (Auto) 1.6 Neutrophils # (Auto) 6.0 Lymphocytes # (Auto) 3.3 Monocytes # (Auto) 0.6 Eosinophils # (Auto) 0.1 Basophils # (Auto) 0.2 CBC Comment DIFF FINAL Differential Comment Prothrombin Time 10.2 Prothromb Time International Ratio 1.0 Activated Partial Thromboplast Time 28.7 Blood Urea Nitrogen 14 Creatinine 0.90 Random Glucose 89 Total Protein 7.5 Albumin 3.8 Calcium Level 8.7 Magnesium Level 2.0 Alkaline Phosphatase 81 Aspartate Amino Transf (AST/SGOT) 19 Alanine Aminotransferase (ALT/SGPT) 21 Total Bilirubin 0.6 Sodium Level 137 Potassium Level 3.2 Chloride Level 100 Carbon Dioxide Level 28.3 Anion Gap 9 Estimat Glomerular Filtration Rate 67 Total Creatine Kinase 101 Creatine Kinase MB 0.8 Troponin I LESS THAN 0.02 B-Type Natriuretic Peptide 18 Lipase 122 Result Diagram: 01/16/1842601/16/18426 Imaging Last Impressions Gall Bladder Ultrasound 01/16/18 7315 Signed Impressions: CONCLUSION: 1. Abnormal gallbladder wall thickening with adjacent trace pericholecystic fl uid. No stones are identified within the lumen and no stones identified within the common bile duct. Given the patient's right upper quadrant pain concern is for a calculus cholecystitis. Abdomen/Pelvis CT 01/16/18 6316 Signed Impressions: CONCLUSION: 1. Distended gallbladder with a thickened gallbladder wall. This could represe nt cholecystitis. Calcified gallstones are not seen. Noncalcified gallstones wo uld not be visible on the CT examination. 2. Mild hepatic steatosis. Chest X-Ray 01/16/18 3733 Signed Impressions: CONCLUSION: No acute cardiopulmonary process. Assessment and Plan Assessment and Plan 47-year-old female with acute cholecystitis by imaging and history. Unsure why she would have acalculus cholecystitis. May be some sludge or small stones are missed on the ultrasound. I would recommend to proceed with laparoscopic cholecystectomy possible open. I discussed this in detail with the patient and she understands and desires to proceed. Jose Jesus MD Jan 16, 2018 12:37
[2018-01-16] MEDS ORDERED: LACTATED RINGER'S 1000 ML IV PRN (12:45)
[2018-01-16] MEDS ORDERED: INSULIN HUMAN REGULAR 1,000 UNITS/10 ML VIAL SQ PRN (12:45)
[2018-01-16] MEDS ORDERED: SODIUM CHLORID 0.9% 500 ML IV PRN (12:45)
[2018-01-16] MEDS ORDERED: METOPROLOL TARTRATE 25 MG TAB PO PRN (12:45)
--- NOTE | 2018-01-16 13:31 | PD.OP ---
cc: Jose Jesus MD Operative Report Preoperative Diagnosis: (1) Acute cholecystitis Postoperative Diagnosis: (1) Acute cholecystitis Procedure: Laparoscopic cholecystectomy Anesthesia: General Surgeon: Jose Jesus Head Of Physics(s): Verenice Operation and Findings: Complications: None apparent EBL: 50cc Operative findings: Distended edematous gallbladder. No stones identified. Procedure in detail: The patient was taken to the operating room and placed in the supine position. General endotracheal anesthesia was induced. The abdomen was prepped and draped in usual sterile fashion and a surgical timeout was performed to verify correct patient procedure and site. Appropriate perioperative antibiotics were administered. Local anesthetic was injected in the skin and subcutaneous tissue superior to the umbilicus and a 5 mm incision performed. The abdomen was entered using the Optiview 5 mm trocar with direct laparoscopic visualization. The abdomen was then insufflated to 15 mmHg with CO2 gas which the patient tolerated well. Next a 12 mm port was placed in the epigastrium and two 5 mm ports in the right upper quadrant and right lateral abdomen. The patient was placed in reverse Trendelenburg position and turned slightly to the left. Attention was turned to the right upper quadrant and the dome of the gallbladder was grasped and retracted cephalad. The infundibulum was retracted laterally to expose Calot's triangle. Blunt dissection and judicious use of electrocautery was used to expose the cystic duct and the cystic artery directly entering the gallbladder. Two clips were placed proximally on each of these structures and one distally and they were transected. The gallbladder was then removed from the liver bed using electrocautery. The gallbladder was inadvertently entered with spillage of dark green bile. No stones were identified. The gallbladder was fully removed from the liver bed and then the gallbladder was then removed from the abdomen using an Endo Catch bag. There was oozing from the gallbladder fossa which was cauterized. Also placed Surgicel snow in this area with good hemostasis. There was bleeding from the liver laterally also cauterized and Surgicel snow placed. The right upper quadrant was copiously irrigated. The clips were in place on the cystic duct and cystic artery stumps with no bleeding or bile leakage. At this point, the abdomen was allowed to desufflate and trochars were removed. The fascia at the 12 mm port site was closed with 0 Vicryl suture. Skin was closed with subcuticular 4-0 Monocryl as well as Dermabond. The patient tolerated the procedure well and was extubated and taken to PACU in stable condition. All sponge and instrument counts were correct. Jose Jesus MD Jan 16, 2018 13:31
[2018-01-16] MEDS ORDERED: KETO10 PO (13:33)
[2018-01-16] MEDS ORDERED: *MEPERIDINE 25 MG INJ VIAL PERIprocedural Use ONLY ONE (13:54)
[2018-01-16] MEDS ORDERED: MORPHINE SULFATE 4 MG/ML INJ ONE (14:13)
[2018-01-16] MEDS ORDERED: *HYDROmorphone PF 1 MG VIAL PERIprocedural Use ONLY ONE (14:27)
[2018-01-16] MEDS ORDERED: *Lactated Ringer's INJ 1,000 ML ONE (14:30)
--- NOTE | 2018-01-16 15:35 | HHI.DCPOC ---
Discharge Care Plan Diagnosis: (1) Acute cholecystitis Goals to Promote Your Health * To prevent worsening of your condition and complications * To maintain your health at the optimal level Directions to Meet Your Goals Take your medications as prescribed Follow your dietary instruction Follow activity as directed Keep your appointments as scheduled Take your immunizations and boosters as scheduled If your symptoms worsen call your PCP, if no PCP go to Urgent Care Center or Emergency Room Smoking is Dangerous to Your Health. Avoid second hand smoke Call the 24-hour hour crisis hotline for domestic abuse at Tammie Steward Jan 16, 2018 15:35
[2018-01-16] MEDS ORDERED: NORC5TAB PO (16:07)
[2018-01-16] MEDS ORDERED: PROPRANOLOL HCL 20 MG TAB PO SCH (18:00)
[2018-01-16] MEDS ORDERED: REMOVE OLD PATCH T-DERMAL SCH (21:00)
--- NOTE | 2018-01-17 15:17 | EKG ---
Date Performed: 01/16/2018 Time Performed: 04:04:46 PTAGE: 47 years EKG: Sinus rhythm NONSPECIFIC T-WAVE ABNORMALITY BORDERLINE ECG PREVIOUS TRACING 12/22/17 Since the previous tracing, no significant change noted DOCTOR: Brett Holt Interpretating Date/Time 01/17/2018 15:15:53
== END 2018-01-16 18:26 | disposition home or self-care (01) ==
LOC: PHED 03:59 → PHEDA 07:47 → PH3A 08:47 → PH3B 11:54 → PH3A 11:56
PROVIDERS: ADMIT Hospitalist; ATTEND Hospitalist
DX: K81.2 Acute cholecystitis with chronic cholecystitis (principal); R06.02 Shortness of breath; K82.8 Other specified diseases of gallbladder; E87.6 Hypokalemia; I10 Essential (primary) hypertension; E78.5 Hyperlipidemia, unspecified; J44.9 Chronic obstructive pulmonary disease, unspecified; K21.9 Gastro-esophageal reflux disease without esophagitis; K76.0 Fatty (change of) liver, not elsewhere classified; K44.9 Diaphragmatic hernia without obstruction or gangrene; F41.8 Other specified anxiety disorders; M19.90 Unspecified osteoarthritis, unspecified site; F17.210 Nicotine dependence, cigarettes, uncomplicated
CPT/HCPCS: 00790; 47562; 71045; 74177; 76705; 80053; 82550; 82552; 83690; 83735; 83880; 84484; 84703; 85025; 85610; 85730; 88304; 93005; 96361; 96365; 96366; 96375; 96376; 99285; C9113; G0378; J1170; J2175; J2250; J2270; J2405; J2543; J3010; J7030; J7120; Q9967